=== PATIENT | male | born 1970 | race Caucasian/White ===

== ENCOUNTER 2020-06-19 07:23 | Outpatient (REF) | payer BC, SELFPAY ==
[2020-06-19 07:59] LABS: MANUAL DIFF FLAG NO
[2020-06-19 08:01] LABS: Glucose Urine UA NEG (NEG); Leukocyte Esterase Urine NEG (NEG); Nitrite Urine NEG (NEG); Urine Blood TRACE (NEG); Urine Ketones NEG (NEG); Urine Protein NEG (NEG-TRACE)
[2020-06-19 08:02] LABS: Basophils Absolute Auto 0.1 X10*3/uL (0.0-0.2); Basophils Percent Auto 0.9 % (0-2); Eosinophils Absolute Auto 0.3 X10*3/uL (0.0-0.4); Eosinophils Percent Auto 3.3 % (0-4); Hemoglobin 15.7 g/dl (14.0-18.0); Imm Gran Abs Auto 0.05 X10*3/uL (0.00-0.03); Imm Gran Pct Auto 0.6 % (0.0-0.4); Lymphocytes Absolute Auto 2.2 X10*3/uL (1.2-4.9); Lymphocytes Percent Auto 27.4 % (20-40); Mean Corpuscular HGB Conc 34.9 g/dl (31.0-36.0); Mean Corpuscular Hemoglobin 30.4 pg (27.0-33.0); Mean Platelet Volume 9.3 fL (9.4-12.4); Monocytes Absolute Auto 0.6 X10*3/uL (0.1-1.2); Monocytes Percent Auto 7.4 % (2-11); Neutrophils Absolute Auto 4.9 X10*3/uL (2.0-8.3); Neutrophils Percent Auto 60.4 % (45-73); Platelet Count 362 X10*3/uL (160-400); Red Blood Count 5.17 X10*6/uL (4.60-5.80); Red Cell Distribution Width 12.3 % (11.0-16.0); White Blood Count 8.1 X10*3/uL (4.8-10.8)
[2020-06-19 08:03] LABS: Appearance Urine CLEAR; Color Urine YELLOW
[2020-06-19 08:19] LABS: RBC Urine 0-2 /HPF (0); WBC Urine 0 /HPF (0-4)
[2020-06-19 08:34] LABS: Alanine Aminotransferase 58 U/L (0-40); Albumin Level 4.5 g/dL (3.5-5.0); Alkaline Phosphatase 93 U/L (39-117); Anion Gap 13 (12-20); Aspartate Amino Transferase 38 U/L (5-37); Bilirubin Total 0.6 mg/dL (0.0-1.0); Blood Urea Nitrogen 19 mg/dL (9-16); Calcium 9.7 mg/dL (8.4-10.2); Carbon Dioxide 27 mmol/L (22-29); Chloride 104 mmol/L (96-108); Cholesterol 279 mg/dL; Estimated Glomerular Filt Rate > 60; Glucose Fasting 98 mg/dL (60-99); HDL Cholesterol 43 mg/dL; Potassium 4.1 mmol/L (3.3-5.1); Sodium 140 mmol/L (135-145); Total Protein 7.3 g/dL (6.5-8.0); Triglycerides 593 mg/dL
[2020-06-19 08:57] LABS: TSH reflex Free T4 0.81 uIU/mL (0.32-4.0)
== END 2020-06-19 07:24 | disposition home or self-care (01) ==
LOC: HO.LAB 07:23
PROVIDERS: PCP Internal Medicine; Visit Provider Internal Medicine
DX: I10 Essential (primary) hypertension (principal); E66.9 Obesity, unspecified; E78.00 Pure hypercholesterolemia, unspecified
CPT/HCPCS: 36415; 80053; 80061; 81001; 81003; 84443; 85025

== ENCOUNTER 2020-12-08 08:02 | Outpatient (REF) | payer BC, SELFPAY ==
[2020-12-08 09:34] LABS: Alanine Aminotransferase 40 U/L (0-40); Albumin Level 4.4 g/dL (3.5-5.0); Alkaline Phosphatase 87 U/L (39-117); Anion Gap 13 (12-20); Aspartate Amino Transferase 27 U/L (5-37); Bilirubin Total 0.6 mg/dL (0.0-1.0); Blood Urea Nitrogen 15 mg/dL (9-16); Calcium 9.5 mg/dL (8.4-10.2); Carbon Dioxide 24 mmol/L (22-29); Chloride 106 mmol/L (96-108); Estimated Glomerular Filt Rate > 60; Glucose Fasting 95 mg/dL (60-99); Potassium 4.1 mmol/L (3.3-5.1); Sodium 139 mmol/L (135-145); Total Protein 7.2 g/dL (6.5-8.0)
[2020-12-08 09:46] LABS: Cholesterol 352 mg/dL; HDL Cholesterol 38 mg/dL; Triglycerides 1287 mg/dL
[2020-12-08 09:52] LABS: Prostate Specific Antigen 0.46 ng/mL (<0.05-4.0)
[2020-12-08 10:03] LABS: Glucose Urine UA NEG (NEG); Leukocyte Esterase Urine NEG (NEG); Nitrite Urine NEG (NEG); Specific Gravity - Urine 1.025 (1.005-1.025); Urine Blood NEG (NEG); Urine Ketones NEG (NEG); Urine Protein TRACE MG/DL (NEG-TRACE)
[2020-12-08 10:05] LABS: Appearance Urine CLOUDY; Color Urine YELLOW
[2020-12-12 16:27] LABS: Testosterone, Total 242 ng/dL (250-1100)
== END 2020-12-08 08:03 | disposition home or self-care (01) ==
LOC: HO.LAB 08:02
PROVIDERS: PCP Internal Medicine; Visit Provider Internal Medicine
DX: E78.2 Mixed hyperlipidemia (principal); I10 Essential (primary) hypertension; R79.89 Other specified abnormal findings of blood chemistry; N52.9 Male erectile dysfunction, unspecified; Z12.5 Encounter for screening for malignant neoplasm of prostate
CPT/HCPCS: 36415; 80053; 80061; 81003; 84153; 84403

== ENCOUNTER 2021-03-12 06:56 | Outpatient (REF) | payer BC, SELFPAY ==
[2021-03-12 07:56] LABS: Alanine Aminotransferase 32 U/L (0-40); Albumin Level 4.5 g/dL (3.5-5.0); Alkaline Phosphatase 72 U/L (39-117); Anion Gap 14 (12-20); Aspartate Amino Transferase 29 U/L (5-37); Bilirubin Total 0.6 mg/dL (0.0-1.0); Blood Urea Nitrogen 18 mg/dL (9-16); Carbon Dioxide 26 mmol/L (22-29); Chloride 108 mmol/L (96-108); Cholesterol 250 mg/dL; Estimated Glomerular Filt Rate > 60; Glucose Fasting 106 mg/dL (60-99); HDL Cholesterol 51 mg/dL; Potassium 4.2 mmol/L (3.3-5.1); Sodium 144 mmol/L (135-145); Total Protein 7.1 g/dL (6.5-8.0); Triglycerides 494 mg/dL
== END 2021-03-12 06:57 | disposition home or self-care (01) ==
LOC: HO.LAB 06:56
PROVIDERS: PCP Internal Medicine; Visit Provider Internal Medicine
DX: E78.00 Pure hypercholesterolemia, unspecified (principal)
CPT/HCPCS: 36415; 80053; 80061

== ENCOUNTER 2021-05-27 06:46 | Outpatient (REF) | payer BC, SELFPAY ==
[2021-05-27 07:00] LABS: MANUAL DIFF FLAG NO
[2021-05-27 07:28] LABS: Basophils Absolute Auto 0.1 X10*3/uL (0.0-0.2); Basophils Percent Auto 0.8 % (0-2); Eosinophils Absolute Auto 0.4 X10*3/uL (0.0-0.4); Eosinophils Percent Auto 5.2 % (0-4); Hematocrit 42.5 % (42.0-52.0); Hemoglobin 14.6 g/dl (14.0-18.0); Imm Gran Abs Auto 0.02 X10*3/uL (0.00-0.03); Imm Gran Pct Auto 0.3 % (0.0-0.4); Lymphocytes Absolute Auto 2.6 X10*3/uL (1.2-4.9); Lymphocytes Percent Auto 35.5 % (20-40); Mean Corpuscular HGB Conc 34.4 g/dl (31.0-36.0); Mean Corpuscular Hemoglobin 29.4 pg (27.0-33.0); Mean Corpuscular Volume 85.5 fL (80.0-98.0); Mean Platelet Volume 9.4 fL (9.4-12.4); Monocytes Absolute Auto 0.6 X10*3/uL (0.1-1.2); Monocytes Percent Auto 7.7 % (2-11); Neutrophils Absolute Auto 3.7 x10*3/uL (2.0-8.3); Neutrophils Percent Auto 50.5 % (45-73); Platelet Count 305 X10*3/uL (160-400); Red Blood Count 4.97 X10*6/uL (4.60-5.80); Red Cell Distribution Width 12.4 % (11.0-16.0); White Blood Count 7.2 X10*3/uL (4.8-10.8)
[2021-05-27 08:10] LABS: Alanine Aminotransferase 49 U/L (0-40); Albumin Level 4.1 g/dL (3.5-5.0); Alkaline Phosphatase 117 U/L (39-117); Anion Gap 12 (12-20); Aspartate Amino Transferase 21 U/L (5-37); Bilirubin Total 0.7 mg/dL (0.0-1.0); Blood Urea Nitrogen 13 mg/dL (9-16); Calcium 9.3 mg/dL (8.4-10.2); Carbon Dioxide 26 mmol/L (22-29); Chloride 102 mmol/L (96-108); Cholesterol 363 mg/dL; Estimated Glomerular Filt Rate > 60; Glucose Fasting 103 mg/dL (60-99); HDL Cholesterol 36 mg/dL; Sodium 136 mmol/L (135-145); Total Protein 6.9 g/dL (6.5-8.0); Triglycerides 1574 mg/dL
[2021-05-27 08:18] LABS: Prostate Specific Antigen Scr 0.46 ng/mL (<0.05-4.0); TSH reflex Free T4 1.15 uIU/mL (0.32-4.0); Vitamin D 25-OH Total 18.2 ng/mL (>30)
[2021-05-27 08:39] LABS: Appearance Urine CLEAR; Color Urine YELLOW; Glucose Urine UA NEG (NEG); Leukocyte Esterase Urine NEG (NEG); Nitrite Urine NEG (NEG); Specific Gravity - Urine 1.025 (1.005-1.025); UACC Culture Trigger NO; Urine Blood TRACE (NEG); Urine Ketones NEG (NEG); Urine Protein NEG (NEG-TRACE)
[2021-05-27 09:09] LABS: WBC Urine 0 /HPF (0-4)
== END 2021-05-27 06:47 | disposition home or self-care (01) ==
LOC: HO.LAB 06:46
PROVIDERS: PCP Internal Medicine; Visit Provider Internal Medicine
DX: Z00.00 Encounter for general adult medical examination without abnormal findings (principal); E78.00 Pure hypercholesterolemia, unspecified; E55.9 Vitamin D deficiency, unspecified; I10 Essential (primary) hypertension
CPT/HCPCS: 36415; 80053; 80061; 81001; 81003; 82306; 84153; 84443; 85025

== ENCOUNTER 2021-08-28 07:55 | Outpatient (REF) | payer BC, SELFPAY ==
[2021-08-28 08:57] LABS: Alanine Aminotransferase 42 U/L (0-40); Albumin Level 4.5 g/dL (3.5-5.0); Alkaline Phosphatase 86 U/L (39-117); Anion Gap 12 (12-20); Aspartate Amino Transferase 33 U/L (5-37); Bilirubin Total 0.7 mg/dL (0.0-1.0); Blood Urea Nitrogen 24 mg/dL (9-16); Calcium 10.2 mg/dL (8.4-10.2); Carbon Dioxide 25 mmol/L (22-29); Chloride 104 mmol/L (96-108); Cholesterol 280 mg/dL; Estimated Glomerular Filt Rate > 60; Glucose Fasting 104 mg/dL (60-99); HDL Cholesterol 44 mg/dL; Potassium 4.8 mmol/L (3.3-5.1); Sodium 136 mmol/L (135-145); Total Protein 7.2 g/dL (6.5-8.0); Triglycerides 718 mg/dL
[2021-08-28 09:19] LABS: TSH reflex Free T4 0.95 uIU/mL (0.32-4.0); Vitamin D 25-OH Total 27.9 ng/mL (>30)
[2021-08-28 10:16] LABS: Appearance Urine HAZY; Color Urine YELLOW; Glucose Urine UA NEG (NEG); Leukocyte Esterase Urine NEG (NEG); Nitrite Urine NEG (NEG); Specific Gravity - Urine 1.025 (1.005-1.025); Urine Blood NEG (NEG); Urine Ketones NEG (NEG); Urine Protein NEG (NEG-TRACE)
== END 2021-08-28 07:56 | disposition home or self-care (01) ==
LOC: HO.LAB 07:55
PROVIDERS: PCP Internal Medicine; Visit Provider Internal Medicine
DX: Z00.00 Encounter for general adult medical examination without abnormal findings (principal); I10 Essential (primary) hypertension; E78.00 Pure hypercholesterolemia, unspecified; E55.9 Vitamin D deficiency, unspecified
CPT/HCPCS: 36415; 80053; 80061; 81003; 82306; 84443

== ENCOUNTER 2022-03-18 08:03 | Outpatient (REF) | payer BC, SELFPAY ==
[2022-03-18 09:42] LABS: Estimated Average Glucose 111 mg/dL; Hemoglobin A1C 152.3719 umol/L; Hemoglobin A1c % 5.5 %
[2022-03-18 10:30] LABS: Anion Gap 13 (12-20); Glucose Fasting 83 mg/dL (60-99); TSH reflex Free T4 0.96 uIU/mL (0.32-4.0)
[2022-03-18 10:38] LABS: Alanine Aminotransferase 44 U/L (0-40); Albumin Level 4.3 g/dL (3.5-5.0); Alkaline Phosphatase 78 U/L (39-117); Aspartate Amino Transferase 29 U/L (5-37); Bilirubin Total 0.7 mg/dL (0.0-1.0); Blood Urea Nitrogen 19 mg/dL (9-16); Calcium 9.6 mg/dL (8.4-10.2); Carbon Dioxide 25 mmol/L (22-29); Chloride 106 mmol/L (96-108); Cholesterol 221 mg/dL; Estimated Glomerular Filt Rate > 60; HDL Cholesterol 42 mg/dL; Potassium 4.2 mmol/L (3.3-5.1); Sodium 140 mmol/L (135-145); Total Protein 6.8 g/dL (6.5-8.0); Triglycerides 555 mg/dL
== END 2022-03-18 08:04 | disposition home or self-care (01) ==
LOC: HO.LAB 08:03
PROVIDERS: PCP Internal Medicine; Visit Provider Internal Medicine
DX: E78.00 Pure hypercholesterolemia, unspecified (principal); R73.01 Impaired fasting glucose
CPT/HCPCS: 36415; 80053; 80061; 83036; 84443

== ENCOUNTER 2022-09-04 07:44 | Outpatient (REF) | payer BC, SELFPAY ==
[2022-09-04 09:01] LABS: Alanine Aminotransferase 32 U/L (0-40); Albumin Level 4.5 g/dL (3.5-5.0); Alkaline Phosphatase 77 U/L (39-117); Anion Gap 13 (12-20); Aspartate Amino Transferase 26 U/L (5-37); Bilirubin Total 0.8 mg/dL (0.0-1.0); Blood Urea Nitrogen 18 mg/dL (9-16); Calcium 9.7 mg/dL (8.4-10.2); Carbon Dioxide 24 mmol/L (22-29); Chloride 107 mmol/L (96-108); Cholesterol 264 mg/dL; Estimated Glomerular Filt Rate > 60; Glucose Fasting 94 mg/dL (60-99); HDL Cholesterol 43 mg/dL; Potassium 4.4 mmol/L (3.3-5.1); Sodium 140 mmol/L (135-145); Total Protein 7.2 g/dL (6.5-8.0); Triglycerides 525 mg/dL
[2022-09-04 09:20] LABS: Vitamin D 25-OH Total 29.5 ng/mL (>30)
== END 2022-09-04 07:45 | disposition home or self-care (01) ==
LOC: HO.LAB 07:44
PROVIDERS: PCP Internal Medicine; Visit Provider Internal Medicine
DX: E78.00 Pure hypercholesterolemia, unspecified (principal); E55.9 Vitamin D deficiency, unspecified
CPT/HCPCS: 36415; 80053; 80061; 82306

== ENCOUNTER 2022-10-31 09:21 | Outpatient (AMB) | payer BC, SELFPAY ==
--- NOTE | 2022-10-31 09:22 | MHC.OFFVIS ---
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 Dashboard Developer Required: No Accompanied by: Self / Same As Patient Allergies bee venom protein (honey bee) Allergy (Severe, Verified 10/31/22 09:28) Anaphylaxis Medication List - Last Reconciled 10/31/22 by Baldemar Magaña MD amlodipine 10 mg PO DAILY 90 days cholecalciferol (vitamin D3) 25 mcg PO DAILY epinephrine (EpiPen 2-Enoch) 0.3 mg (0.3 mL) IM Q4H PRN ezetimibe 10 mg PO DAILY 90 days fenofibrate 160 mg PO DAILY 90 days losartan 100 mg PO DAILY 90 days omega-3 fatty acids 1,000 mg PO DAILY HPI HPI Comments History of Present Illness Details Titus is here for consultation regarding hypertension and chest pain. Patient states that he has had hypertension for almost 20 years now. He is on a combination of amlodipine and losartan. Blood pressures are quite high. Several blood pressures in the last couple of years are high and nothing in fact in the normal range. He states he was also taking hydralazine but got dizzy and started. He gets a vague sensation of discomfort in the left chest off and on. He feels as though there is some bowel noise in the left chest, very vague description. Otherwise, he is physically active he does not get any exertional angina. Also seems to have a history of high triglycerides. Unknown LDL. [facility] Medical History Benign essential hypertension Elevated LFTs Erectile dysfunction Impaired fasting glucose Mixed hyperlipidemia Obesity (BMI 30-39.9) Pure hypercholesterolemia Vitamin D deficiency Surgical History Hx of umbilical hernia repair (~02/2015) Family History (Updated 10/31/22 @ 09:29 by Nivia Cooper) Father Prostate cancer Mother Heart problem Social History Housing: House Alcohol intake: current Alcohol intake frequency: holidays/special occasions only Alcohol type: beer Patient Tobacco Use Status: Never used Tobacco e-Cigarette/Vaping Use: Never Used Second Hand Smoke Exposure: No service: No Current occupational status: employed Cognitive needs: No Hearing needs: No Vision needs: No Review of Systems Const Denies chills, Denies daytime sleepiness, Denies fatigue, Denies fever(s), Denies frequent falls, Denies night sweats, Denies snoring, Denies weakness, Denies weight gain and Denies weight loss Eyes Denies loss of vision ENT Denies dizziness and Denies hearing loss Card Denies chest pain, Denies chest pain with activity, Denies syncope, Denies rapid heart rate, Denies edema, Denies claudication, Denies leg edema, Denies lightheadedness, Denies palpitations, Denies dyspnea, Denies dyspnea on exertion and Denies orthopnea Resp Denies cough, Denies excessive phlegm production, Denies dyspnea, Denies dyspnea on exertion, Denies snoring and Denies wheezing GI Denies abdominal pain, Denies hematochezia, Denies change in bowel habits, Denies change in stool character, Denies heartburn, Denies nausea and Denies vomiting Denies hematuria, Denies dysuria and Denies urinary frequency Musc Denies arthralgias, Denies muscle weakness, Denies numbness and Denies tingling Skin/Breast Denies nail changes and Denies rash Neuro Denies Abnormal speech present, Denies dizziness, Denies syncope, Denies frequent falls, Denies loss of vision, Denies memory loss, Denies numbness, Denies tingling and Denies weakness Psych Denies depression and Denies memory loss Endo Denies fatigue and Denies palpitations Aller/Immun Denies wheezing Physical Exam Vital Signs: Last Vital Signs Pulse 74 10/31/22 09:24 BP 152/86 H 10/31/22 09:24 BMI result Body Mass Index 31.9 Const General: comfortable and no acute distress Orientation/consciousness: patient oriented x3 HEENT Other: Unremarkable Head: Yes normal to inspection Neck Neck: Yes normal visual inspection Chest Chest palpation & inspection: normal inspection of the chest Resp Auscultation: clear to auscultation bilaterally Cardio Palpation: normal PMI Heart sounds: S1 normal heart sound present, S2 normal heart sound present, no gallops, no murmurs and no rubs GI Palpation (GI): Soft to palpation Back/Spine/Pelvis Other: unremarkable Skin General skin exam: no rashes or lesions noted Neuro General: patient oriented x3 Speech: No Abnormal speech present Extrem General: Yes normal to inspection Psych Mental Status: mental status grossly normal Office Procedures EKG Details: EKG with sinus rhythm at 74/Min; no significant ST-T changes and otherwise unremarkable. [place]. [address]-[id number], Complete Assessment & Plan Assessment & Plan (1) Chest pain: Code(s): R07.9 - Chest pain, unspecified Plan: Atypical symptoms but due to uncontrolled hypertension as well as high triglycerides, will need to check for CAD. We can do coronary CTA. He has a history of severe allergic reaction to bee sting in the past, and has p.r.n. EpiPen. However, never used it. Will check with CT department if any prep is necessary. (2) Benign essential hypertension: Code(s): I10 - Essential (primary) hypertension Plan: Currently on a combination of amlodipine, losartan. Apparently tried hydralazine but got dizzy. Other option would be to add spironolactone. Beta-blockers may be use but he seems to be on EpiPen p.r.n.. Hence that will not be effective if there is a need to use EpiPen ever. Beyond this not much of a choice. May need some renal Dopplers to. Will get an echocardiogram to assess for any LVH/diastolic dysfunction. Plan Follow-up after testing. Orders: Orders CA echo transthoracic complete Today I25.10 - Atherosclerotic heart disease of [place] coronary artery without angina pectoris, R07.9 - Chest pain, unspecified CT Cardiac Coronary Angio Today R07.9 - Chest pain, unspecified Medications: Discontinued hydralazine Discontinued Reason: Patient no longer taking 25 mg PO TID 90 days 270 tabs 1RF I10 - Essential (primary) hypertension Coding Level of Care Code New Pt Level 4 (71914) Diagnoses Chest pain R07.9 Benign essential hypertension I10 CPT Codes EKG - CPT: 52901-[id number], Complete ([id number])
[2022-10-31 09:24] VITALS: BP 152/86; PULSE 74; BMI 31.9
== END 2022-10-31 09:49 | disposition home or self-care (01) ==
PROVIDERS: PCP Internal Medicine; Visit Provider Internal Medicine
DX: R07.9 Chest pain, unspecified (principal); I10 Essential (primary) hypertension
CPT/HCPCS: 93010; 99204

== ENCOUNTER → 2022-10-31 09:21 | Outpatient (BNVA) | payer BC, SELFPAY | PROVIDERS: PCP Internal Medicine; Visit Provider Internal Medicine | DX: R07.9 Chest pain, unspecified (principal); I10 Essential (primary) hypertension; E78.2 Mixed hyperlipidemia; Z79.899 Other long term (current) drug therapy | CPT/HCPCS: 93005 ==

== ENCOUNTER → 2022-12-10 07:51 | Outpatient (REF) | payer BC, SELFPAY ==
--- NOTE | 2022-12-10 07:56 | CA_ITS ---
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 Study Quality: Adequate ECG Rhythm: Sinus Conclusions: - 1. Normal LV systolic function with LVEF of 55-60% with mild LVH 2. Mildly dilated left atrium 3. Normal cardiac valvular Doppler 4. No gross pericardial effusion Findings Left Ventricle Normal left ventricular size and systolic function. There is mildly increased left ventricular wall thickness. The visually estimated ejection fraction is between 55-60%. Spectral Doppler is indicative of an impaired relaxation filling pattern. E/E prime ratio is between 8 and 15 consistent with indeterminate filling pressures. Right Ventricle Normal right ventricular cavity size and systolic function. Atria The left atrium is mildly dilated. There is lipomatous hypertrophy of the interatrial septum. There is no evidence of interatrial shunt. The right atrium is normal in size. Aortic Valve The aortic valve structure and function is likely normal. There is no aortic valve stenosis. There is no aortic valve regurgitation. Mitral Valve Normal mitral valve structure and function. There is trace mitral valve regurgitation. There is no mitral valve stenosis. Pulmonic Valve The pulmonic valve is likely normal. Tricuspid Valve Likely normal tricuspid valve structure and function. There is trace tricuspid valve regurgitation. The right ventricular systolic pressure is normal. The right ventricular systolic pressure is 9 mmHg. Great Vessels All visible segments of the aorta are normal in size. The pulmonary artery was not well visualized. Venous The inferior vena cava is normal in size and collapses greater than 50% with inspiration. Pericardium/Pleural There is no evidence of pericardial effusion. Prior Study Comparison No prior study available for comparison. Measurements 2D Linear Measurements IVSd: 1.23 0.6-0.9/0.6-1.0 cm LVIDd: 4.28 3.9-5.3/4.2-5.9 cm LVIDd Index: 2.14 2.4-3.2/2.2-3.1 cm/m2 LVIDs: 2.74 2.0-3.6 cm LVPWd: 1.22 0.7-1.1 cm LA Diam: 4.20 2.7-3.8/3.0-4.0 cm LAIDs Index: 2.10 1.5-2.3 cm/m2 LV Mass: 235.48 67-162/88-224 g LV Mass Index: 117.74 43-95/49-115 g/m2 LVOT Diam: 2.10 3.0+(-)1.3 cm 2D Systolic Function EF 4C: 50.10 >55% EF 2C: 62.10 >55% EF BiP: 57.80 >55% Mitral Valve MV Pk E: 0.69 MV PK A: 0.82 MV Decel Time: 244.00 E/A: 0.80 E'Lateral: 11.10 E'Medial: 8.05 E/E' Med: 8.60 E/E' Lat: 6.20 PHT: 72.00 MVA PHT: 3.06 Decel Brantley: 2.82 Aortic Valve AoV Pk Gato: 1.56 AoV Mn Gato: 0.94 AoV VTI: 0.36 AoV Pk Grad: 10.00 Aov Mn Grad: 5.00 ANDREW Cont.VTI: 2.34 LVOT LVOT Pk Gato: 0.98 LVOT Mn Gato: 0.64 LVOT VTI: 0.24 LVOT Pk Grad: 4.00 LVOT Mn Grad: 2.00 LVOT Diam: 2.10 LVOT Area: 3.46 Diastolic Function MV Pk E: 0.69 MV Pk A: 0.82 E/A: 0.80 E'Medial: 8.05 E/E' Med: 8.60 E' Laterial: 11.10 E/E' Lat: 6.20 Right Ventricle TAPSE (mm): 28.70 TVS' Gato: 12.50 Tricuspid Valve TR Pk Gato: 1.20 TR Pk Grad: 6.00 RA Press: 3.00 RVSP: 9.00 Great Vessels Aorta Sinus of Valsalva: 3.10 2.0-3.5 cm Ao Asc: 3.40 2.1-3.4 cm Pulmonary Valve PV Pk Gato: 1.10 Peak PV Grad: 5.00 Updated in Other Vendor System with Status of Final Ran Null MD electronically signed on 12/12/2022 11:42:39 AM with status of Final
== END ==
LOC: HO.CARD 07:51
PROVIDERS: PCP Internal Medicine; Visit Provider Internal Medicine
DX: R07.9 Chest pain, unspecified (principal); I25.10 Atherosclerotic heart disease of native coronary artery without angina pectoris
CPT/HCPCS: 93306

== ENCOUNTER → 2022-12-10 07:56 | Outpatient (BNV) | payer BC, SELFPAY | PROVIDERS: PCP Internal Medicine; Visit Provider Internal Medicine Cardiovascular Disease | DX: I25.10 Atherosclerotic heart disease of native coronary artery without angina pectoris (principal) | CPT/HCPCS: 93306 ==

== ENCOUNTER 2023-01-13 11:58 | Outpatient (AMB) | payer BC, SELFPAY ==
--- NOTE | 2023-01-13 12:31 | MHC.OFFVIS ---
Intake Vital Signs 01/13/23 12:33 Height 5 ft 6 in Weight 199 lb 11.821 oz BMI 32.2 BP 152/90 H Blood Pressure Location Lt brachial Position Standing Intake Visit Reasons: follow up after testing Intake Note: follow up Regulatory Compliance Specialist Required: No Accompanied by: Self / Same As Patient Allergies bee venom protein (honey bee) Allergy (Severe, Verified 01/13/23 12:34) Anaphylaxis Medication List - Last Reconciled 01/13/23 by Baldemar Magaña MD amlodipine 10 mg PO DAILY 90 days cholecalciferol (vitamin D3) 25 mcg PO DAILY epinephrine (EpiPen 2-Enoch) 0.3 mg (0.3 mL) IM Q4H PRN ezetimibe 10 mg PO DAILY 90 days fenofibrate 160 mg PO DAILY 90 days losartan 100 mg PO DAILY 90 days omega-3 fatty acids 1,000 mg PO DAILY HPI HPI Comments History of Present Illness Details Titus returns for follow-up. Recently seen in consultation regarding hypertension and chest pain. He has had hypertension for almost 2 decades. On amlodipine and losartan. Blood pressure is still high. He tried hydralazine but got very dizzy. Has had some atypical chest pain on the left side off and on. However, fairly active physically and no limitations from that. No exertion chest pains. Since last seen, underwent echocardiogram and coronary CTA. [facility] Medical History Benign essential hypertension Elevated LFTs Erectile dysfunction Impaired fasting glucose Mixed hyperlipidemia Obesity (BMI 30-39.9) Pure hypercholesterolemia Vitamin D deficiency Surgical History Hx of umbilical hernia repair (~02/2015) Family History Father Prostate cancer Mother Heart problem Social History Housing: House Alcohol intake: current Alcohol intake frequency: holidays/special occasions only Alcohol type: beer Patient Tobacco Use Status: Never used Tobacco e-Cigarette/Vaping Use: Never Used Second Hand Smoke Exposure: No service: No Current occupational status: employed Cognitive needs: No Hearing needs: No Vision needs: No Review of Systems Const Denies weakness ENT Denies dizziness Card Denies chest pain, Denies chest pain with activity, Denies syncope, Denies rapid heart rate, Denies pedal edema, Denies edema, Denies leg edema, Denies lightheadedness, Denies palpitations, Denies dyspnea, Denies dyspnea on exertion and Denies orthopnea Resp Denies cough, Denies dyspnea and Denies dyspnea on exertion GI Denies hematochezia and Denies change in stool character Musc Denies abnormal gait, Denies muscle cramps, Denies muscle weakness, Denies numbness, Denies radiating pain into limb and Denies tingling Neuro Denies abnormal gait, Denies dizziness, Denies syncope, Denies numbness, Denies tingling and Denies weakness Endo Denies palpitations Physical Exam Vital Signs: Last Vital Signs BP 152/90 H 01/13/23 12:33 BMI result Body Mass Index 32.2 Const General: comfortable and no acute distress Orientation/consciousness: patient oriented x3 HEENT Other: Unremarkable Head: Yes normal to inspection Neck Neck: Yes normal visual inspection Chest Chest palpation & inspection: normal inspection of the chest Resp Auscultation: clear to auscultation bilaterally Cardio Palpation: normal PMI Heart sounds: S1 normal heart sound present, S2 normal heart sound present, no gallops, no murmurs and no rubs GI Palpation (GI): Soft to palpation Back/Spine/Pelvis Other: unremarkable Skin General skin exam: no rashes or lesions noted Neuro General: patient oriented x3 Extrem General: Yes normal to inspection Psych Mental Status: mental status grossly normal Assessment & Plan Assessment & Plan (1) Chest pain: Code(s): R07.9 - Chest pain, unspecified Plan: Coronary CT is unremarkable. Echocardiogram with LVEF of 55-60%. Mild LVH/diastolic dysfunction but otherwise unremarkable. Hence the pain is probably noncardiac. No further workup at this time. (2) Benign essential hypertension: Code(s): I10 - Essential (primary) hypertension Plan: Currently on amlodipine/losartan. Hydralazine make some dizzy. With regard to beta-blockers, will not be able to use as he needs EpiPen for serious allergic reactions. Hence start spironolactone/HCTZ combination. BMP few weeks after that. Check renal artery Doppler. Check home sleep study. Plan Follow-up after testing. Orders: Orders Basic Metabolic Panel 4 Weeks I10 - Essential (primary) hypertension US renal doppler Today I70.1 - Atherosclerosis of renal artery RT home sleep study Today G47.33 - Obstructive sleep apnea (adult) (pediatric) Medications: New spironolacton-hydrochlorothiaz 25-25 mg 1 tab PO DAILY 90 tabs 3RF Coding Level of Care Code Est Pt Level 4 (86539) Diagnoses Chest pain R07.9 Benign essential hypertension I10
[2023-01-13 12:33] VITALS: BP 152/90; BMI 32.2
== END 2023-01-13 12:46 | disposition home or self-care (01) ==
PROVIDERS: PCP Internal Medicine; Visit Provider Internal Medicine
DX: R07.9 Chest pain, unspecified (principal); I10 Essential (primary) hypertension
CPT/HCPCS: 99214

== ENCOUNTER → 2023-01-13 11:58 | Outpatient (BNVA) | payer BC, SELFPAY | PROVIDERS: PCP Internal Medicine; Visit Provider Internal Medicine ==

== ENCOUNTER 2023-02-03 06:48 | Outpatient (REF) | payer BC, SELFPAY ==
[2023-02-03 08:03] LABS: Alanine Aminotransferase 45 U/L (0-40); Albumin Level 4.5 g/dL (3.5-5.0); Alkaline Phosphatase 55 U/L (39-117); Anion Gap 14 (12-20); Aspartate Amino Transferase 51 U/L (5-37); Bilirubin Total 0.8 mg/dL (0.0-1.0); Blood Urea Nitrogen 21 mg/dL (9-16); Calcium 9.5 mg/dL (8.4-10.2); Carbon Dioxide 20 mmol/L (22-29); Chloride 106 mmol/L (96-108); Cholesterol 188 mg/dL (<200); Estimated Glomerular Filt Rate > 60; Glucose Fasting 103 mg/dL (60-99); Glucose Random 102 mg/dL (60-115); HDL Cholesterol 47 mg/dL (>40); LDL Cholesterol Calculated 107 mg/dL (<100); Potassium 5.4 mmol/L (3.3-5.1); Sodium 135 mmol/L (135-145); Total Protein 7.8 g/dL (6.5-8.0); Triglycerides 174 mg/dL (<150)
[2023-02-03 08:15] LABS: Vitamin D 25-OH Total 31.9 ng/mL (>30)
== END 2023-02-03 06:49 | disposition home or self-care (01) ==
LOC: HO.LAB 06:48
PROVIDERS: PCP Internal Medicine; Visit Provider Nurse Practitioner Family
DX: E55.9 Vitamin D deficiency, unspecified (principal); E78.2 Mixed hyperlipidemia; I10 Essential (primary) hypertension
CPT/HCPCS: 36415; 80048; 80053; 80061; 82306

== ENCOUNTER 2023-02-09 09:11 | Outpatient (AMB) | payer BC, SELFPAY ==
[2023-02-09 09:15] VITALS: BP 124/90; PULSE 67; O2SAT 97; BMI 32.0
--- NOTE | 2023-02-09 09:15 | MHC.PC.OV ---
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 Needle Tip Required: No Accompanied by: Self / Same As Patient Allergies bee venom protein (honey bee) Allergy (Severe, Verified 02/09/23 09:34) Anaphylaxis Medication List - Last Reconciled 02/09/23 by Dwayne Jose MD amlodipine 10 mg PO DAILY 90 days cholecalciferol (vitamin D3) 25 mcg PO DAILY epinephrine (EpiPen 2-Enoch) 0.3 mg (0.3 mL) IM Q4H PRN ezetimibe 10 mg PO DAILY 90 days fenofibrate 160 mg PO DAILY 90 days hydrochlorothiazide 25 mg PO DAILY losartan 100 mg PO DAILY 90 days omega-3 fatty acids 1,000 mg PO DAILY Tobacco use date assessed: 02/09/23 Dental Screening Dental Screen Date: 02/09/23 Did you have a dental visit in the last 12 months?: No Did you have a dental problem in the last 6 months where you did not have access to dental care?: No Was dental information given to patient?: No HPI HTN, HLD HPI Details Patient comes in today for his follow up visit States that he feels okay He denies any headaches or dizziness Denies any chest pains, no SOB He had echocardiogram and coronary CT done a couple of months ago with cardiology - both came back okay, with only mild LVH and mildly dilated LA on echo No nausea/vomiting, no abdominal pain No change in bowel habits noted He's had some changes made to his BP meds over the past few months and had to have his Aldactazide discontinued recently and changed back to HCTZ due to hyperkalemia on his recent labs Had his follow up labs done last week - to discuss his results FOR[facility]LY [facility], [facility] Medical History (Updated 02/09/23 @ 10:33 by Dwayne Jose MD) Impaired fasting glucose Vitamin D deficiency Elevated LFTs Erectile dysfunction Mixed hyperlipidemia Obesity (BMI 30-39.9) Benign essential hypertension Surgical History Hx of umbilical hernia repair (~02/2015) Family History Father Prostate cancer Mother Heart problem Social History Housing: House Alcohol intake: current Alcohol intake frequency: holidays/special occasions only Alcohol type: beer Patient Tobacco Use Status: Never used Tobacco e-Cigarette/Vaping Use: Never Used Second Hand Smoke Exposure: No service: No Current occupational status: employed Cognitive needs: No Hearing needs: No Vision needs: No Questionnaire PHQ-9 Over the last 2 weeks, how often have you been bothered by any of the following problems? 1. Little interest or pleasure in doing things: not at all 2. Feeling down, depressed, or hopeless: not at all 3. Trouble falling or staying asleep, or sleeping too much: not at all 4. Feeling tired or having little energy: not at all 5. Poor appetite or overeating: not at all 6. Feeling bad about yourself - or that you are a failure or have let yourself or your family down: not at all 7. Trouble concentrating on things, such as reading the newspaper or watching television: not at all 8. Moving or speaking so slowly that other people could have noticed. Or the opposite - being so fidgety or restless that you have been moving around a lot more than usual: not at all 9. Thoughts that you would be better off or of hurting yourself in some way: not at all Total score: 0 Depression Screening Interpretation: Negative Depression Screening Done: Yes 35722 - PHQ-9 Billing: Yes Source: Developed by Drs. Lamberto Arias, Hailee Erazo, Kvng Lundberg and colleagues, with an educational marly from [employer]. Thrive Questionnaire Date Thrive assessed: 02/09/23 I am a: Patient What is your living situation today?: I have a steady place to live Within the past 12 months, did the food you bought not last and you didn't have the money to get more?: Never true Within the past 12 months, did you worry whether your food would run out before you got money to buy more?: Never true Do you have trouble paying for medicines?: No Do you have trouble getting transportation to medical appointments?: No Do you have trouble paying your heating and electricity bill?: No Do you have trouble taking care of your child, family member or friend?: No Do you have trouble with day-to-day activities such as bathing, preparing meals, shopping, managing finances, etc.?: No Are you currently unemployed and looking for a job?: No Are you interested in more education?: No Please select the resources that you would like help with: None Currently or been in a relationship where the following occur: no concerns reported AUDIT C Alcohol Use Questionnaire (AUDIT-C) 1. How often do you have a drink containing alcohol?: Monthly or less 2. How many drinks containing alcohol do you have on a typical day when you are drinking?: 1 or 2 3. How often do you have six or more drinks on one occasion?: Never Total Score: 1 Score Reviewed/Action Taken: Yes SHANTELLE-7 AMB Questionnaire SHANTELLE-7 Date SHANTELLE - 7 assessed: 02/09/23 Feeling nervous, anxious, or on edge: 0 = Not at all Not being able to stop or control worryin = Not at all Worrying too much about different things: 0 = Not at all Trouble relaxin = Not at all Being so restless that it is hard to sit still: 0 = Not at all Becoming easily annoyed or irritable: 0 = Not at all Feeling afraid as if something awful might happen: 0 = Not at all Total SHANTELLE-7 score (0-4 normal; 5-9 mild; 10-14 moderate; 15-21 severe): 0 Source: Developed by Drs. Lamberto Arias, Hailee Erazo, Kvng Lundberg and colleagues, with an educational marly from [employer]. Review of Systems Const Denies fatigue and Denies fever(s) ENT Denies dysphagia, Denies otalgia, Denies neck pain, Denies odynophagia and Denies sore throat Card Denies chest pain, Denies rapid heart rate, Denies irregular heart rhythm, Denies palpitations and Denies dyspnea Resp Denies cough, Denies dyspnea and Denies wheezing GI Denies abdominal pain, Denies constipation, Denies dysphagia, Denies heartburn, Denies diarrhea, Denies nausea, Denies odynophagia and Denies vomiting Denies difficulty urinating, Denies dysuria and Denies urinary frequency Musc Denies back pain, Denies arthralgias and Denies neck pain Skin/Breast Denies rash Endo Denies fatigue and Denies palpitations Aller/Immun Denies wheezing Physical exam (Primary Care) Vital Signs: Last Vital Signs Pulse 67 02/09/23 09:15 BP 124/90 H 02/09/23 09:15 Pulse Ox 97 02/09/23 09:15 Oxygen Delivery Method Room Air 02/09/23 09:15 BMI result Body Mass Index 32.0 Tobacco/Smoking Status: Tobacco use Status Tobacco use date assessed 02/09/23 02/09/23 09:23 Patient Tobacco Use Status Never used Tobacco 02/09/23 09:23 e-Cigarette/Vaping Use Never Used 02/09/23 09:23 PHQ-9: PHQ-9 Score PHQ-9: Total score 0 02/09/23 09:23 Depression Screening Interpretation: Negative Thrive Assessment: Date of Thrive Assessment Date Thrive assessed 02/09/23 02/09/23 09:23 Currently or been in a relationship where the following occur: no concerns reported Const General: no acute distress and alert HENMT Ears: TM's normal bilaterally and EAC's normal Throat: Yes posterior oropharynx normal and Yes tonsils normal (no TP congestion) Neck Neck: Yes no lymphadenopathy and Yes supple Resp Auscultation: clear to auscultation bilaterally, no rales and no wheezes Cardio Rate: regular rate Rhythm: regular rhythm Heart sounds: no murmurs GI Palpation (GI): Soft to palpation, nontender and No hepatosplenomegaly present Skin General skin exam: no rashes or lesions noted Extrem General: Yes no clubbing, cyanosis or edema Results Reviewed Results Reviewed: Laboratory Tests 02/03/23 06:53 Sodium 135 Potassium 5.4 H D Creatinine 1.18 Estimated GFR > 60 Fasting Glucose 103 H Calcium 9.5 AST 51 H ALT 45 H Triglycerides 174 H Cholesterol 188 LDL Cholesterol, Calc 107 H HDL Cholesterol 47 25-OH Vitamin D Total 31.9 Assessment and Plan Assessment & Plan (1) Benign essential hypertension: Code(s): I10 - Essential (primary) hypertension Plan: Reinforced low sodium diet - goal is systolic BP of at least 130 mm or less Continue Losartan 100 mg QD, Amlodipine 10 mg QD and HCTZ 25 mg QD He was recently on Aldactazide 25-25 mg QD but this had to be discontinued due to hyperkalemia on his recent labs; was switched back to HCTZ 25 mg QD He also could not tolerate Hydralazine (25 mg TID) in the past due to dizziness and beta blockers are not advisable given his allergies and potential need to use Epipen for anaphylactic reactions He is scheduled for renal doppler and home sleep study for further evaluation next month Follow up with cardiology as scheduled (2) Mixed hyperlipidemia: Code(s): E78.2 - Mixed hyperlipidemia Plan: Results of his labs done last week reviewed and discussed with patient - advised that his cholesterol numbers, especially his serum TG level, have improved significantly from previous Reinforced low cholesterol diet Continue Fenofibrate 160 mg QD and Ezetimibe 10 mg QD Will recheck his labs and fasting lipids in 3 months for follow up (3) Elevated LFTs: Code(s): R79.89 - Other specified abnormal findings of blood chemistry Plan: Was most likely related to his weight and cholesterol level and was improving previously but his LFTs have increased again on his recent labs Discussed that this is likely related to his triglyceride level being lowered significantly in a short amount of time, during which his liver has to work harder to help process his cholesterol Reinforced avoidance of alcohol and Tylenol-containing meds - patient states that he has not drank any alcohol in over a month now Will continue to monitor his LFTs regularly (4) Impaired fasting glucose: Code(s): R73.01 - Impaired fasting glucose Plan: His FBS is still slightly elevated on his recent labs Reinforced low calorie/low carb diet and exercise as tolerated Will recheck his FBS for follow up and check his HgbA1c again in 3 months for further evaluation (5) Hyperkalemia: Code(s): E87.5 - Hyperkalemia Plan: His serum potassium level was elevated on his recent labs Patient was on Aldactazide at the time and this was discontinued and he was switched over to HCTZ alone by cardiology a few days ago Will recheck his labs and serum potassium level in 3 months (6) Vitamin D deficiency: Code(s): E55.9 - Vitamin D deficiency, unspecified Plan: Continue Vitamin D 03072 units once a week (7) Obesity (BMI 30-39.9): Code(s): E66.9 - Obesity, unspecified Plan: Reinforced diet/exercise as tolerated/lose weight Plan Follow up in 3 months Orders: Orders Comprehensive [place]. Panel Fast 3 Months E78.00 - Pure hypercholesterolemia, unspecified, E87.5 - Hyperkalemia, I10 - Essential (primary) hypertension Lipid Panel 3 Months E78.00 - Pure hypercholesterolemia, unspecified Hemoglobin A1c 3 Months R73.01 - Impaired fasting glucose Vitamin D 25-OH Total 3 Months E55.9 - Vitamin D deficiency, unspecified Complete Blood Count Auto Diff 3 Months I10 - Essential (primary) hypertension Coding Level of Care Code Est Pt Level 4 (10181) Diagnoses Benign essential hypertension I10 Mixed hyperlipidemia E78.2 Elevated LFTs R79.89 Impaired fasting glucose R73.01 Hyperkalemia E87.5 Vitamin D deficiency E55.9 Obesity (BMI 30-39.9) E66.9
== END 2023-02-09 09:46 | disposition home or self-care (01) ==
PROVIDERS: PCP Internal Medicine; Visit Provider Internal Medicine
DX: I10 Essential (primary) hypertension (principal); E78.2 Mixed hyperlipidemia; R79.89 Other specified abnormal findings of blood chemistry; R73.01 Impaired fasting glucose; E87.5 Hyperkalemia; E55.9 Vitamin D deficiency, unspecified
CPT/HCPCS: 99214

== ENCOUNTER 2023-02-26 08:31 | Outpatient (REF) | payer BC, SELFPAY ==
--- NOTE | ~2023-02-26 | US_ITS ---
EXAMINATION: Renal ultrasound with Doppler CLINICAL INFORMATION: Atherosclerosis of renal arteries COMPARISON: None. TECHNIQUE: Grayscale and color imaging of the kidneys. Grayscale color and Doppler imaging of the renal arteries including waveform spectral analysis and renal veins FINDINGS: Kidneys are normal in contour and symmetric in size with the right kidney measuring 12.5 x 5.4 x 5.2 cm and the left kidney measuring 12.3 x 6.2 x 6.1 cm. Renal cortical thickness and echogenicity is normal. No renal stone, mass or hydronephrosis. Aortic peak systolic velocity measures 96 cm/s. Right renal artery peak systolic velocities are normal measuring 103, 144 and 1 3 7 cm/s proximally, in the midportion and distally. Right renal artery to aorta ratio is normal measuring 1.4. Resistive indices of the interlobar arteries in the right kidney are normal measuring 0.6-0.7. The right renal vein is patent. Left renal artery peak systolic velocities are normal measuring 131, 156 and 1 2 9 cm/s proximally, in the midportion and distally. Left renal artery to aorta ratio is normal measuring 1.4. Resistive indices of the interlobar renal arteries in the left kidney are normal measuring 0.6-0.7. The left renal vein is patent. US/US renal doppler IMPRESSION: Normal renal ultrasound and renal Doppler exam.
== END 2023-02-26 08:32 | disposition home or self-care (01) ==
LOC: HO.US 08:31
PROVIDERS: PCP Internal Medicine; Visit Provider Internal Medicine
DX: I70.1 Atherosclerosis of renal artery (principal)
CPT/HCPCS: 93975

== ENCOUNTER 2023-04-21 14:39 | Outpatient (AMB) | payer BC, SELFPAY ==
[2023-04-21 14:41] VITALS: BP 140/82; BMI 32.9
--- NOTE | 2023-04-21 14:41 | MHC.OFFVIS ---
Intake Vital Signs 04/21/23 14:41 Height 5 ft 6 in Weight 203 lb 11.314 oz BMI 32.9 BP 140/82 H Blood Pressure Location Lt brachial Position Sitting Intake Visit Reasons: 3 mth f/up testing HS Allergies bee venom protein (honey bee) Allergy (Severe, Verified 04/21/23 14:43) Anaphylaxis Medication List - Last Reconciled 04/21/23 by Yola Collins, [employer] amlodipine 10 mg PO DAILY 90 days cholecalciferol (vitamin D3) 25 mcg PO DAILY epinephrine (EpiPen 2-Enoch) 0.3 mg (0.3 mL) IM Q4H PRN ezetimibe 10 mg PO DAILY 90 days fenofibrate 160 mg PO DAILY 90 days hydrochlorothiazide 25 mg PO DAILY losartan 100 mg PO DAILY 90 days omega-3 fatty acids 1,000 mg PO DAILY HPI 3 mth f/up testing HS HPI Details Titus is a 52-year-old male with past medical history of hypertension, hyperlipidemia, impaired fasting glucose presents for follow-up of blood pressure. On last visit spironolactone and hydrochlorothiazide was added. He then had labs showing elevated potassium and spironolactone was stopped. Renal Doppler test completed, home sleep study ordered however not done yet. Today he reports he has been feeling well since his last visit. He denies any concerning symptoms of chest discomfort, shortness of breath, heart palpitations, lightheadedness, presyncope, syncope, PND, orthopnea or edema. He takes his meds as directed. He works out in his gym at home. 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 [facility] Medical History Impaired fasting glucose Vitamin D deficiency Elevated LFTs Erectile dysfunction Mixed hyperlipidemia Obesity (BMI 30-39.9) Benign essential hypertension Surgical History Hx of umbilical hernia repair (~02/2015) Family History Father Prostate cancer Mother Heart problem Social History Housing: House Alcohol intake: current Alcohol intake frequency: holidays/special occasions only Alcohol type: beer Patient Tobacco Use Status: Never used Tobacco e-Cigarette/Vaping Use: Never Used Second Hand Smoke Exposure: No service: No Current occupational status: employed Cognitive needs: No Hearing needs: No Vision needs: No Review of Systems Const No All systems reviewed & are unremarkable except as noted in HPI and below ENT Denies dizziness Card Denies chest pain, Denies chest pain at rest, Denies chest pain with activity, Denies rapid heart rate, Denies pedal edema, Denies edema, Denies leg edema, Denies lightheadedness, Denies palpitations, Denies dyspnea, Denies dyspnea on exertion and Denies orthopnea Resp Denies cough, Denies dyspnea and Denies dyspnea on exertion GI Denies hematochezia and Denies change in stool character Musc Denies abnormal gait, Denies limited range of motion, Denies muscle cramps, Denies muscle weakness, Denies numbness, Denies radiating pain into limb, Denies stiffness and Denies tingling Neuro Denies abnormal gait, Denies dizziness, Denies numbness and Denies tingling Endo Denies palpitations Physical Exam Vital Signs: Last Vital Signs BP 140/82 H 04/21/23 14:41 BMI result Body Mass Index 32.9 Const General: cooperative, healthy appearing, comfortable and no acute distress Orientation/consciousness: patient oriented x3 Neck Neck: Yes normal visual inspection and Yes no JVD Resp Effort & Inspection: normal respiratory effort Auscultation: clear to auscultation bilaterally, no crackles, no rales, no rhonchi and no wheezes Cardio Jugular venous distension: no JVD Rate: regular rate Rhythm: regular rhythm Heart sounds: S1 normal heart sound present, S2 normal heart sound present, no gallops, no murmurs and no rubs Neuro General: patient oriented x3 Extrem General: Yes normal to inspection, No no pedal edema and No calf tenderness Psych Appearance: grossly normal Mental Status: mental status grossly normal Speech and movement: Normal speech and movement present Assessment & Plan Assessment & Plan (1) Benign essential hypertension: Code(s): I10 - Essential (primary) hypertension Plan: Longstanding history of hypertension. Had been on amlodipine and losartan. Last visit spironolactone and hydrochlorothiazide combination pill added. Echocardiogram done 12/10/2022 showed EF 55-60%, mild LVH, mildly dilated left atrium, normal valves. Labs done 02/03/2023 showed potassium 5.4. His spironolactone was stopped and he was continued on hydrochlorothiazide 25 mg daily. He is also on amlodipine 10 mg daily and losartan 100 mg daily. He is not able to take beta-blockers as he has an EpiPen for bee sting allergies. He tells me he has not been on any other medications for blood pressure control. Renal ultrasound done on 02/26/2023 was normal with normal Doppler exam. Today Blood pressure is mildly elevated. After resting for 10 minutes, recheck done by me 146/82. 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 Reviewed meds with Dr. 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 He recommend use of hydralazine. Will order and have him come to the office in 3 weeks for a blood pressure check. Continue other medications without change. Home sleep study ordered last visit however not completed yet. Will assist patient in getting this scheduled. Reviewed low-salt diet, weight loss, exercise as tolerated. Cardiology follow-up in the office 6 months, sooner if needed. (2) LVH (left ventricular hypertrophy): Code(s): I51.7 - Cardiomegaly Plan: Mild LVH. Needs good blood pressure control. (3) Chest pain: Code(s): R07.9 - Chest pain, unspecified Qualifiers: Chest pain type: other chest pain Qualified Code(s): R07.89 - Other chest pain Plan: Prior reports of chest discomfort without cardiac findings. A CTA of the coronary arteries was done on 12/03/2022 showing excellent quality normal coronary CTA. Today at this visit denies any chest discomfort. Plan Time spent on chart review, documentation, interview and assessment Medications: New hydralazine 25 mg PO TID 90 tabs 5RF Coding Level of Care Code Est Pt Level 4 (84677) Diagnoses Benign essential hypertension I10 LVH (left ventricular hypertrophy) I51.7 Other chest pain R07.89 Chest pain type: other chest pain
== END 2023-04-21 15:20 | disposition home or self-care (01) ==
PROVIDERS: PCP Internal Medicine; Visit Provider Nurse Practitioner Family
DX: I10 Essential (primary) hypertension (principal); I51.7 Cardiomegaly; R07.89 Other chest pain
CPT/HCPCS: 99214

== ENCOUNTER → 2023-04-21 14:39 | Outpatient (BNVA) | payer BC, SELFPAY | PROVIDERS: PCP Internal Medicine; Visit Provider Nurse Practitioner Family ==

== ENCOUNTER 2023-05-06 05:57 | Outpatient (REF) | payer BC, SELFPAY ==
[2023-05-06 06:14] LABS: MANUAL DIFF FLAG NO
[2023-05-06 07:57] LABS: Basophils Absolute Auto 0.1 X10*3/uL (0.0-0.2); Basophils Percent Auto 0.6 % (0-2); Eosinophils Absolute Auto 0.2 X10*3/uL (0.0-0.4); Hematocrit 44.3 % (42.0-52.0); Hemoglobin 15.2 g/dl (14.0-18.0); Imm Gran Abs Auto 0.03 X10*3/uL (0.00-0.03); Imm Gran Pct Auto 0.4 % (0.0-0.4); Lymphocytes Absolute Auto 2.2 X10*3/uL (1.2-4.9); Lymphocytes Percent Auto 28.6 % (20-40); Mean Corpuscular HGB Conc 34.3 g/dl (31.0-36.0); Mean Corpuscular Hemoglobin 29.3 pg (27.0-33.0); Mean Corpuscular Volume 85.5 fL (80.0-98.0); Mean Platelet Volume 9.8 fL (9.4-12.4); Monocytes Absolute Auto 0.6 X10*3/uL (0.1-1.2); Monocytes Percent Auto 7.1 % (2-11); Neutrophils Absolute Auto 4.7 x10*3/uL (2.0-8.3); Neutrophils Percent Auto 60.3 % (45-73); Platelet Count 329 X10*3/uL (160-400); Red Blood Count 5.18 X10*6/uL (4.60-5.80); Red Cell Distribution Width 12.5 % (11.0-16.0); White Blood Count 7.7 X10*3/uL (4.8-10.8)
[2023-05-06 08:29] LABS: Estimated Average Glucose 111 mg/dL; Hemoglobin A1c % 5.5 % (<6.0)
[2023-05-06 08:37] LABS: Alanine Aminotransferase 62 U/L (0-40); Albumin Level 4.2 g/dL (3.5-5.0); Alkaline Phosphatase 55 U/L (39-117); Anion Gap 12 (12-20); Aspartate Amino Transferase 38 U/L (5-37); Bilirubin Total 0.4 mg/dL (0.0-1.0); Blood Urea Nitrogen 28 mg/dL (9-16); Calcium 9.4 mg/dL (8.4-10.2); Carbon Dioxide 24 mmol/L (22-29); Chloride 106 mmol/L (96-108); Cholesterol 160 mg/dL (<200); Estimated Glomerular Filt Rate > 60; Glucose Fasting 93 mg/dL (60-99); HDL Cholesterol 45 mg/dL (>40); LDL Cholesterol Calculated 80 mg/dL (<100); Potassium 3.5 mmol/L (3.3-5.1); Sodium 138 mmol/L (135-145); Total Protein 6.8 g/dL (6.5-8.0); Triglycerides 176 mg/dL (<150)
[2023-05-06 08:43] LABS: Vitamin D 25-OH Total 25.5 ng/mL (>30)
== END 2023-05-06 05:58 | disposition home or self-care (01) ==
LOC: HO.LAB 05:57
PROVIDERS: Absent Provider Internal Medicine; PCP Internal Medicine; Visit Provider Internal Medicine
DX: E78.00 Pure hypercholesterolemia, unspecified (principal); I10 Essential (primary) hypertension; E87.5 Hyperkalemia; R73.01 Impaired fasting glucose; E55.9 Vitamin D deficiency, unspecified
CPT/HCPCS: 36415; 80053; 80061; 82306; 83036; 85025

== ENCOUNTER → 2023-05-12 08:33 | Outpatient (BNVA) | payer BC, SELFPAY | PROVIDERS: PCP Internal Medicine; Visit Provider Nurse Practitioner Family ==

== ENCOUNTER 2023-05-13 09:30 | Outpatient (AMB) | payer BC, SELFPAY ==
[2023-05-13 09:48] VITALS: BP 124/82; PULSE 87; O2SAT 98; BMI 33.4
--- NOTE | 2023-05-13 09:48 | MHC.PC.OV ---
Vital Signs 05/13/23 09:48 Height 5 ft 6 in Weight 207 lb 2 oz BMI 33.4 BP 124/82 Blood Pressure Location Lt brachial Position Sitting Pulse 87 Pulse Source Pulse Oximeter Pulse Oximetry (%) 98 Oxygen Delivery Method Room Air Intake Visit Reasons: hyperlipidemia, elevated LFTs, HTN Seed Core Operator Required: No Accompanied by: Self / Same As Patient Allergies bee venom protein (honey bee) Allergy (Severe, Verified 05/13/23 10:37) Anaphylaxis Medication List - Last Reconciled 05/13/23 by Dwayne Jose MD amlodipine 10 mg PO DAILY 90 days cholecalciferol (vitamin D3) 25 mcg PO DAILY 90 days epinephrine (EpiPen 2-Enoch) 0.3 mg (0.3 mL) IM Q4H PRN ezetimibe 10 mg PO DAILY 90 days fenofibrate 160 mg PO DAILY 90 days hydralazine 25 mg PO TID 90 days hydrochlorothiazide 25 mg PO DAILY 90 days losartan 100 mg PO DAILY 90 days multivitamin (Daily Multi-Vitamin tablet) 1 tab PO DAILY omega-3 fatty acids 1,000 mg PO DAILY 90 days Tobacco use date assessed: 05/13/23 Dental Screening Dental Screen Date: 05/13/23 Did you have a dental visit in the last 12 months?: No Did you have a dental problem in the last 6 months where you did not have access to dental care?: No Was dental information given to patient?: No HPI hyperlipidemia, elevated LFTs, HTN HPI Details Patient comes in today for his follow up visit States that he feels okay He denies any headaches or dizziness Denies any chest pains, no SOB No nausea/vomiting, no abdominal pain No change in bowel habits noted Needs all of his Rx refilled Had his follow up labs done last week - to discuss his results [facility] Medical History Impaired fasting glucose Vitamin D deficiency Elevated LFTs Erectile dysfunction Mixed hyperlipidemia Obesity (BMI 30-39.9) Benign essential hypertension Surgical History Hx of umbilical hernia repair (~02/2015) Family History Father Prostate cancer Mother Heart problem Social History Housing: House Alcohol intake: current Alcohol intake frequency: holidays/special occasions only Alcohol type: beer Patient Tobacco Use Status: Never used Tobacco e-Cigarette/Vaping Use: Never Used Second Hand Smoke Exposure: No service: No Current occupational status: employed Cognitive needs: No Hearing needs: No Vision needs: No Questionnaire PHQ-9 Over the last 2 weeks, how often have you been bothered by any of the following problems? 1. Little interest or pleasure in doing things: not at all 2. Feeling down, depressed, or hopeless: not at all 3. Trouble falling or staying asleep, or sleeping too much: not at all 4. Feeling tired or having little energy: not at all 5. Poor appetite or overeating: not at all 6. Feeling bad about yourself - or that you are a failure or have let yourself or your family down: not at all 7. Trouble concentrating on things, such as reading the newspaper or watching television: not at all 8. Moving or speaking so slowly that other people could have noticed. Or the opposite - being so fidgety or restless that you have been moving around a lot more than usual: not at all 9. Thoughts that you would be better off or of hurting yourself in some way: not at all Total score: 0 Depression Screening Interpretation: Negative Depression Screening Done: Yes 40151 - PHQ-9 Billing: Yes Source: Developed by Drs. Lamberto Arias, Hailee Erazo, Kvng Lundberg and colleagues, with an educational marly from [employer]. Thrive Questionnaire Date Thrive assessed: 05/13/23 I am a: Patient What is your living situation today?: I have a steady place to live Within the past 12 months, did the food you bought not last and you didn't have the money to get more?: Never true Within the past 12 months, did you worry whether your food would run out before you got money to buy more?: Never true Do you have trouble paying for medicines?: No Do you have trouble getting transportation to medical appointments?: No Do you have trouble paying your heating and electricity bill?: No Do you have trouble taking care of your child, family member or friend?: No Do you have trouble with day-to-day activities such as bathing, preparing meals, shopping, managing finances, etc.?: No Are you currently unemployed and looking for a job?: No Are you interested in more education?: No Please select the resources that you would like help with: None Currently or been in a relationship where the following occur: no concerns reported THRIVE Score: 0 AUDIT C Alcohol Use Questionnaire (AUDIT-C) 1. How often do you have a drink containing alcohol?: Monthly or less 2. How many drinks containing alcohol do you have on a typical day when you are drinking?: 1 or 2 3. How often do you have six or more drinks on one occasion?: Never Total Score: 1 Score Reviewed/Action Taken: Yes SAHNTELLE-7 AMB Questionnaire SHANTELLE-7 Date SHANTELLE - 7 assessed: 05/13/23 Feeling nervous, anxious, or on edge: 0 = Not at all Not being able to stop or control worryin = Not at all Worrying too much about different things: 0 = Not at all Trouble relaxin = Not at all Being so restless that it is hard to sit still: 0 = Not at all Becoming easily annoyed or irritable: 0 = Not at all Feeling afraid as if something awful might happen: 0 = Not at all Total SHANTELLE-7 score (0-4 normal; 5-9 mild; 10-14 moderate; 15-21 severe): 0 Source: Developed by Drs. Lamberto Arias, Hailee Erazo, Kvng Lundberg and colleagues, with an educational marly from [employer]. Review of Systems Const Denies chills, Denies fatigue, Denies fever(s) and Denies headache(s) ENT Denies dysphagia, Denies dizziness, Denies otalgia, Denies headache(s), Denies neck pain, Denies odynophagia and Denies sore throat Card Denies chest pain, Denies rapid heart rate, Denies irregular heart rhythm, Denies palpitations and Denies dyspnea Resp Denies cough, Denies dyspnea and Denies wheezing GI Denies abdominal pain, Denies constipation, Denies dysphagia, Denies heartburn, Denies diarrhea, Denies nausea, Denies odynophagia and Denies vomiting Denies difficulty urinating, Denies dysuria and Denies urinary frequency Musc Denies back pain, Denies arthralgias and Denies neck pain Skin/Breast Denies rash Neuro Denies dizziness and Denies headache(s) Endo Denies fatigue and Denies palpitations Aller/Immun Denies wheezing Physical exam (Primary Care) Vital Signs: Last Vital Signs Pulse 87 05/13/23 09:48 BP 124/82 05/13/23 09:48 Pulse Ox 98 05/13/23 09:48 Oxygen Delivery Method Room Air 05/13/23 09:48 BMI result Body Mass Index 33.4 Tobacco/Smoking Status: Tobacco use Status Tobacco use date assessed 05/13/23 05/13/23 09:56 Patient Tobacco Use Status Never used Tobacco 05/13/23 09:49 e-Cigarette/Vaping Use Never Used 05/13/23 09:49 PHQ-9: PHQ-9 Score PHQ-9: Total score 0 05/13/23 09:56 Depression Screening Interpretation: Negative Thrive Assessment: Date of Thrive Assessment Date Thrive assessed 05/13/23 05/13/23 09:56 Currently or been in a relationship where the following occur: no concerns reported Const General: no acute distress and alert HENMT Ears: TM's normal bilaterally and EAC's normal Throat: Yes posterior oropharynx normal and Yes tonsils normal (no TP congestion) Neck Neck: Yes no lymphadenopathy and Yes supple Resp Auscultation: clear to auscultation bilaterally, no rales and no wheezes Cardio Rate: regular rate Rhythm: regular rhythm Heart sounds: no murmurs GI Palpation (GI): Soft to palpation and nontender Auscultation: normal bowel sounds General: Yes no CVA tenderness Back/Spine/Pelvis Back: no CVA tenderness Thoracic/Lumbar Spine: No lumbar spinal tenderness Skin Rashes: no rashes Extrem General: Yes no clubbing, cyanosis or edema Results Reviewed Results Reviewed: Laboratory Tests 05/06/23 06:13 WBC 7.7 Hgb 15.2 Hct 44.3 Plt Count 329 Sodium 138 Potassium 3.5 Creatinine 1.15 Estimated GFR > 60 Fasting Glucose 93 Hemoglobin A1c % 5.5 Calcium 9.4 AST 38 H ALT 62 H Triglycerides 176 H Cholesterol 160 LDL Cholesterol, Calc 80 HDL Cholesterol 45 25-OH Vitamin D Total 25.5 L Assessment and Plan Assessment & Plan (1) Mixed hyperlipidemia: Code(s): E78.2 - Mixed hyperlipidemia Plan: Results of his labs done last week reviewed and discussed with patient - advised that his cholesterol numbers have improved again from previous Reinforced low cholesterol diet Continue Fenofibrate 160 mg QD and Ezetimibe 10 mg QD Will recheck his labs and fasting lipids in 4 months for follow up (2) Benign essential hypertension: Code(s): I10 - Essential (primary) hypertension Plan: Reinforced low sodium diet - goal is systolic BP of at least 130 mm or less Continue Losartan 100 mg QD, Amlodipine 10 mg QD and HCTZ 25 mg QD He was recently on Aldactazide 25-25 mg QD but this had to be discontinued due to hyperkalemia on his recent labs; was switched back to HCTZ 25 mg QD He also could not tolerate Hydralazine (25 mg TID) in the past due to dizziness and beta blockers are not advisable given his allergies and potential need to use Epipen for anaphylactic reactions but he was started back on this by cardiology a few weeks ago due to suboptimally controlled BP and he has had no issues so far on Hydralazine He had a renal doppler done in February 2023 that came out normal; was supposed to also go for a home sleep study for further evaluation a couple of months ago but unclear if he did get this done or not Follow up with cardiology as scheduled (3) Elevated LFTs: Code(s): R79.89 - Other specified abnormal findings of blood chemistry Plan: Improving - was most likely related to his weight and cholesterol level Reinforced avoidance of alcohol and Tylenol-containing meds - patient states that he has not drank any alcohol in a few months Will continue to monitor his LFTs regularly (4) Impaired fasting glucose: Code(s): R73.01 - Impaired fasting glucose Plan: His FBS is now normal on his recent labs; HgbA1c was also normal at 5.5% on his labs done last week Reinforced low calorie/low carb diet and exercise as tolerated (5) Hyperkalemia: Code(s): E87.5 - Hyperkalemia Plan: His serum potassium level is back to normal on his recent labs Patient was on Aldactazide at the time and this was discontinued and he was switched over to HCTZ alone by cardiology a few months ago Will continue to monitor his serum potassium and electrolytes levels regularly (6) Vitamin D deficiency: Code(s): E55.9 - Vitamin D deficiency, unspecified Plan: Continue Vitamin D 11171 units once a week (7) Obesity (BMI 30-39.9): Code(s): E66.9 - Obesity, unspecified Plan: Reinforced diet/exercise as tolerated/lose weight - he has gained some weight since his last visit States that he normally gets laid off in the winter and he gains weight as a result; his weight will usually start going down once he gets back to work sometime in June Plan Follow up in 4 months Orders: Orders Comprehensive [place]. Panel Fast 4 Months E78.00 - Pure hypercholesterolemia, unspecified Lipid Panel 4 Months E78.00 - Pure hypercholesterolemia, unspecified Vitamin D 25-OH Total 4 Months E55.9 - Vitamin D deficiency, unspecified Medications: Changed From hydralazine 25 mg PO TID 90 tabs 5RF To hydralazine 25 mg PO TID 90 days 270 tabs 3RF From hydrochlorothiazide 25 mg PO DAILY 30 tabs 5RF To hydrochlorothiazide 25 mg PO DAILY 90 days 90 tabs 3RF From omega-3 fatty acids 1,000 mg PO DAILY 90 caps 1RF E78.2 - Mixed hyperlipidemia To omega-3 fatty acids 1,000 mg PO DAILY 90 days 90 caps 3RF E78.2 - Mixed hyperlipidemia From cholecalciferol (vitamin D3) 25 mcg PO DAILY 90 tabs 1RF R79.89 - Other specified abnormal findings of blood chemistry To cholecalciferol (vitamin D3) 25 mcg PO DAILY 90 days 90 tabs 3RF R79.89 - Other specified abnormal findings of blood chemistry Refilled amlodipine 10 mg PO DAILY 90 days 90 tabs 3RF I10 - Essential (primary) hypertension ezetimibe 10 mg PO DAILY 90 days 90 tabs 3RF losartan 100 mg PO DAILY 90 days 90 tabs 3RF I10 - Essential (primary) hypertension fenofibrate 160 mg PO DAILY 90 days 90 tabs 3RF Coding Level of Care Code Est Pt Level 4 (14355) Diagnoses Mixed hyperlipidemia E78.2 Benign essential hypertension I10 Elevated LFTs R79.89 Impaired fasting glucose R73.01 Hyperkalemia E87.5 Vitamin D deficiency E55.9 Obesity (BMI 30-39.9) E66.9
== END 2023-05-13 10:46 | disposition home or self-care (01) ==
PROVIDERS: PCP Internal Medicine; Visit Provider Internal Medicine
DX: E78.2 Mixed hyperlipidemia (principal); I10 Essential (primary) hypertension; R79.89 Other specified abnormal findings of blood chemistry; R73.01 Impaired fasting glucose; E87.5 Hyperkalemia; E55.9 Vitamin D deficiency, unspecified
CPT/HCPCS: 99214

== ENCOUNTER → 2023-05-27 08:35 | Outpatient (REF) | payer BC, SELFPAY | LOC: HO.SL 08:35 | PROVIDERS: PCP Internal Medicine; Visit Provider Internal Medicine | DX: Z13.89 Encounter for screening for other disorder (principal) ==

== ENCOUNTER 2023-06-05 14:51 | Outpatient (AMB) | payer BC, SELFPAY ==
[2023-06-05 15:11] VITALS: BP 162/110; PULSE 88; RESP 17; O2SAT 98; BMI 33.3
--- NOTE | 2023-06-05 15:11 | MHC.PC.OV ---
Vital Signs 06/05/23 15:11 06/05/23 15:44 Height 5 ft 6 in Weight 206 lb 2 oz BMI 33.3 BP 162/110 H 160/100 H Blood Pressure Location Lt brachial Lt brachial Position Sitting Sitting Respiration 17 Pulse 88 Pulse Source Pulse Oximeter Pulse Oximetry (%) 98 Oxygen Delivery Method Room Air Intake Visit Reasons: Annual exam Intake Note: Patient is here today for a physical. Clinical Research Associate Required: No Accompanied by: Self / Same As Patient Allergies bee venom protein (honey bee) Allergy (Severe, Verified 06/05/23 15:37) Anaphylaxis Medication List - Last Reconciled 06/05/23 by Dwayne Jose MD amlodipine 10 mg PO DAILY 90 days cholecalciferol (vitamin D3) 25 mcg PO DAILY 90 days epinephrine (EpiPen 2-Enoch) 0.3 mg (0.3 mL) IM Q4H PRN ezetimibe 10 mg PO DAILY 90 days fenofibrate 160 mg PO DAILY 90 days hydralazine 25 mg PO TID 90 days hydrochlorothiazide 25 mg PO DAILY 90 days losartan 100 mg PO DAILY 90 days multivitamin (Daily Multi-Vitamin tablet) 1 tab PO DAILY omega-3 fatty acids 1,000 mg PO DAILY 90 days Tobacco use date assessed: 05/13/23 Dental Screening Dental Screen Date: 06/05/23 Did you have a dental visit in the last 12 months?: Yes Did you have a dental problem in the last 6 months where you did not have access to dental care?: No Was dental information given to patient?: Patient has dentist HPI Annual exam HPI Details Patient comes in today for his annual physical examination States that he feels okay He denies any headaches or dizziness Denies any chest pains, no SOB No nausea/vomiting, no abdominal pain No change in bowel habits noted He denies any acute urinary symptoms Patient had all of his follow up labs done last month and also had his EGD and colonoscopy done at [facility] earlier this week on 06/01/2023 His colonoscopy came out normal aside from some divertiuclosis and internal and external hemorrhoids and he was advised that he will need a repeat colonoscopy in 10 years His EGD though revealed (+) grade B esophagitis compatible with reflux esophagitis; biopsies were obtained to assess for eosinophilic esophagitis and patient states that he was recently contacted and informed that his biopsies came out normal [facility] Medical History (Updated 06/05/23 @ 16:53 by Dwayne Jose MD) Impaired fasting glucose Vitamin D deficiency Elevated LFTs Erectile dysfunction Mixed hyperlipidemia Obesity (BMI 30-39.9) Benign essential hypertension Surgical History (Updated 06/05/23 @ 16:07 by Dwayne Jose MD) History of esophagogastroduodenoscopy (EGD) History of colonoscopy Hx of umbilical hernia repair (~02/2015) Family History Father Prostate cancer Mother Heart problem Social History Housing: House Alcohol intake: current Alcohol intake frequency: holidays/special occasions only Alcohol type: beer Patient Tobacco Use Status: Never used Tobacco e-Cigarette/Vaping Use: Never Used Second Hand Smoke Exposure: No service: No Current occupational status: employed Cognitive needs: No Hearing needs: No Vision needs: No Questionnaire PHQ-9 Over the last 2 weeks, how often have you been bothered by any of the following problems? Depression Screening Interpretation: Negative Depression Screening Done: Yes Source: Developed by Drs. Lamberto Arias, Kvng Whittaker and colleagues, with an educational marly from [employer]. Thrive Questionnaire Date Thrive assessed: 05/13/23 Currently or been in a relationship where the following occur: no concerns reported THRIVE Score: 0 SHANTELLE-7 AMB Questionnaire SHANTELLE-7 Date SHANTELLE - 7 assessed: 05/13/23 Source: Developed by Drs. Lamberto Arias, Kvng Whittaker and colleagues, with an educational marly from [employer]. Review of Systems Const Denies chills, Denies fatigue, Denies fever(s), Denies headache(s), Denies malaise and Denies weakness Eyes Denies blurry vision, Denies change in vision, Denies irritation and Denies itchy eyes ENT Denies dysphagia, Denies dizziness, Denies otalgia, Denies headache(s), Denies nasal congestion, Denies neck pain, Denies odynophagia and Denies sore throat Card Denies chest pain, Denies rapid heart rate, Denies irregular heart rhythm, Denies palpitations and Denies dyspnea Resp Denies chest congestion, Denies cough, Denies dyspnea and Denies wheezing GI Denies abdominal pain, Denies bloating, Denies constipation, Denies dysphagia, Denies heartburn, Denies diarrhea, Denies nausea, Denies odynophagia and Denies vomiting Denies hematuria, Denies difficulty urinating, Denies dysuria, Denies urinary frequency and Denies urinary urgency Musc Denies back pain, Denies arthralgias, Denies joint swelling, Denies muscle weakness and Denies neck pain Skin/Breast Denies change in pigmentation, Denies lesions, Denies rash and Denies unusual bruising Neuro Denies dizziness, Denies headache(s), Denies paresthesias and Denies weakness Endo Denies fatigue and Denies palpitations Aller/Immun Denies itchy eyes and Denies wheezing Physical exam (Primary Care) Vital Signs: Last Vital Signs Pulse 88 06/05/23 15:11 Resp 17 06/05/23 15:11 BP 162/110 H 06/05/23 15:11 Pulse Ox 98 06/05/23 15:11 Oxygen Delivery Method Room Air 06/05/23 15:11 BMI result Body Mass Index 33.3 Tobacco/Smoking Status: Tobacco use Status Tobacco use date assessed 05/13/23 06/05/23 15:15 Patient Tobacco Use Status Never used Tobacco 06/05/23 15:15 e-Cigarette/Vaping Use Never Used 06/05/23 15:15 Depression Screening Interpretation: Negative Thrive Assessment: Date of Thrive Assessment Date Thrive assessed 05/13/23 06/05/23 15:15 Currently or been in a relationship where the following occur: no concerns reported Const General: no acute distress, alert and awake Orientation/consciousness: patient oriented x3 HENMT Head: Yes normocephalic and Yes atraumatic Ears: external ears normal, TM's normal bilaterally and EAC's normal General nose exam: No nasal discharge present Face and sinus: Yes normal facial exam and Yes sinuses nontender Teeth and gingiva: dentition normal Throat: Yes posterior oropharynx normal and Yes tonsils normal (no TP congestion) Eyes Eyelids: Yes eyelids normal Conjunctivae: conjunctivae normal Pupils: Equal, round and reactive pupils present EOM: EOMs intact bilaterally Neck Neck: Yes no lymphadenopathy and Yes supple Thyroid: Thyroid normal Resp Auscultation: clear to auscultation bilaterally, no rales and no wheezes Cardio Rate: regular rate Rhythm: regular rhythm Heart sounds: no murmurs GI Palpation (GI): Soft to palpation, nontender and No hepatosplenomegaly present Auscultation: normal bowel sounds General: Yes no CVA tenderness Back/Spine/Pelvis Back: no CVA tenderness Thoracic/Lumbar Spine: thoracic and lumbar spine normal to inspection Skin Lesions: no lesions Rashes: no rashes Neuro General: patient oriented x3, moves all extremities, no focal motor deficits and CN's II-XI intact bilaterally Cranial nerves: Yes Equal, round and reactive pupils present Cognition (Neuro): normal cognition Gait exam (Neuro): Normal gait present Extrem General: Yes no clubbing, cyanosis or edema Results Reviewed Results Reviewed: Laboratory Tests 05/06/23 06:13 WBC 7.7 Hgb 15.2 Hct 44.3 Plt Count 329 Sodium 138 Potassium 3.5 Creatinine 1.15 Estimated GFR > 60 Fasting Glucose 93 Hemoglobin A1c % 5.5 Calcium 9.4 AST 38 H ALT 62 H Triglycerides 176 H Cholesterol 160 LDL Cholesterol, Calc 80 HDL Cholesterol 45 25-OH Vitamin D Total 25.5 L Assessment and Plan Assessment & Plan (1) Annual physical exam: Code(s): Z00.00 - Encounter for general adult medical examination without abnormal findings Plan: Patient had his follow up labs done last month - labs were reviewed and discussed with him at his last visit a few weeks ago He is up-to-date with his colon cancer screening - just had his colonoscopy done earlier this week on 06/01/2023; recommend repeat colonoscopy in 10 years (2) Esophagitis: Comment: reflux esophagitis Code(s): K20.90 - Esophagitis, unspecified without bleeding Plan: His EGD done earlier this week also revealed findings of grade B esophagitis; biopsies were reportedly negative Reinforced dietary restrictions Will start him on Pantoprazole 40 mg QD Follow up with GI as scheduled (3) Benign essential hypertension: Code(s): I10 - Essential (primary) hypertension Plan: Reinforced low sodium diet - goal is systolic BP of at least 130 mm or less His blood pressure is quite high today even when it was rechecked but his BP was well-controlled when he was just here a few weeks ago Continue Losartan 100 mg QD, Amlodipine 10 mg QD, Hydralazine 25 mg TID and HCTZ 25 mg QD for now He was previously on Aldactazide 25-25 mg QD but this had to be discontinued due to hyperkalemia on his recent labs and he was switched back to HCTZ 25 mg QD He also could not tolerate Hydralazine in the past due to dizziness and beta blockers are not advisable given his allergies and potential need to use Epipen for anaphylactic reactions but he was started back on this by cardiology a few weeks ago due to suboptimally controlled BP and he has had no issues so far on Hydralazine He had a renal doppler done in February 2023 that came out normal States that he just completed and turned in his home sleep study a few days ago - report is not yet available to review at this time He is instructed to start monitoring his blood pressure at home regularly and to call back IF his systolic BP remains consistently higher than 150 to 160 mm over the next week or two Follow up with cardiology as scheduled (4) Mixed hyperlipidemia: Code(s): E78.2 - Mixed hyperlipidemia Plan: Reinforced low cholesterol diet Continue Fenofibrate 160 mg QD and Ezetimibe 10 mg QD Will recheck his labs and fasting lipids in 4 months for follow up (5) Elevated LFTs: Code(s): R79.89 - Other specified abnormal findings of blood chemistry Plan: Improving on his recent labs These are most likely related to his weight and cholesterol level Reinforced avoidance of alcohol and Tylenol-containing meds - patient states that he has not drank any alcohol in over a month now Will continue to monitor his LFTs regularly (6) Impaired fasting glucose: Code(s): R73.01 - Impaired fasting glucose Plan: His FBS is now normal on his recent labs; HgbA1c was also normal at 5.5% on his labs done a few weeks ago Reinforced low calorie/low carb diet and exercise as tolerated (7) Hyperkalemia: Code(s): E87.5 - Hyperkalemia Plan: His serum potassium level was back to normal on his recent labs Patient was on Aldactazide previously and this was discontinued and he was switched over to HCTZ alone by cardiology a few months ago Will continue to monitor his serum potassium and electrolytes levels regularly (8) Vitamin D deficiency: Code(s): E55.9 - Vitamin D deficiency, unspecified Plan: Continue Vitamin D 82281 units once a week (9) Obesity (BMI 30-39.9): Code(s): E66.9 - Obesity, unspecified Plan: Reinforced diet/exercise as tolerated/lose weight Plan Follow up in 4 months Orders: Orders Lipid Panel 4 Months E78.00 - Pure hypercholesterolemia, unspecified Complete Blood Count Auto Diff 4 Months D64.9 - Anemia, unspecified UA CC w/rflx Micro + Cult 4 Months R30.0 - Dysuria Comprehensive [place]. Panel Fast 4 Months E78.00 - Pure hypercholesterolemia, unspecified Medications: New pantoprazole 40 mg PO DAILY 90 tabs 1RF 90 days K20.90 - Esophagitis, unspecified without bleeding Coding Level of Care Code Est Pt Prev Care 40-64y(90732) Diagnoses Annual physical exam Z00.00 Esophagitis K20.90 Benign essential hypertension I10 Mixed hyperlipidemia E78.2 Elevated LFTs R79.89 Impaired fasting glucose R73.01 Hyperkalemia E87.5 Vitamin D deficiency E55.9 Obesity (BMI 30-39.9) E66.9
[2023-06-05 15:44] VITALS: BP 160/100
== END 2023-06-05 15:49 | disposition home or self-care (01) ==
PROVIDERS: PCP Internal Medicine; Visit Provider Internal Medicine
DX: Z00.00 Encounter for general adult medical examination without abnormal findings (principal); K20.90 Esophagitis, unspecified without bleeding; E66.9 Obesity, unspecified; Z68.33 Body mass index [BMI] 33.0-33.9, adult; I10 Essential (primary) hypertension; E78.2 Mixed hyperlipidemia; R79.89 Other specified abnormal findings of blood chemistry; R73.01 Impaired fasting glucose; E87.5 Hyperkalemia; E55.9 Vitamin D deficiency, unspecified
CPT/HCPCS: 99396

== ENCOUNTER 2023-12-01 10:53 | Outpatient (AMB) | payer BC, SELFPAY ==
[2023-12-01 10:57] VITALS: BP 162/80; PULSE 75; BMI 32.5
--- NOTE | 2023-12-01 10:57 | MHC.OFFVIS ---
Vital Signs 12/01/23 10:57 Height 5 ft 6 in Weight 201 lb 8.04 oz BMI 32.5 BP 162/80 H Blood Pressure Location Lt brachial Position Sitting Pulse 75 Intake Visit Reasons: 6 mth fu (rs) [employer] Technician Required: No Accompanied by: Self / Same As Patient Allergies bee venom protein (honey bee) Allergy (Severe, Verified 06/05/23 15:37) Anaphylaxis Medication List - Last Reconciled 12/01/23 by Baldemar Magaña MD amlodipine 10 mg PO DAILY 90 days cholecalciferol (vitamin D3) 25 mcg PO DAILY 90 days epinephrine (EpiPen 2-Enoch) 0.3 mg (0.3 mL) IM Q4H PRN ezetimibe 10 mg PO DAILY 90 days fenofibrate 160 mg PO DAILY 90 days hydralazine 25 mg PO TID 90 days hydrochlorothiazide 25 mg PO DAILY 90 days losartan 100 mg PO DAILY 90 days multivitamin (Daily Multi-Vitamin tablet) 1 tab PO DAILY omega-3 fatty acids 1,000 mg PO DAILY 90 days pantoprazole 40 mg PO DAILY 90 days HPI Comments Details: Titus returns for follow-up regarding hypertension. He was originally seen in consultation regarding hypertension and chest pain. He has had hypertension for almost 2 decades. Various meds have been tried. Currently, on losartan, amlodipine, hydrochlorothiazide. He was also put on spironolactone but potassium went up. With hydralazine, he had some dizziness but he is still taking it. Overall, quite active without any limitations. He has completed an echocardiogram, coronary CTA, renal Doppler. [facility] Medical History (Updated 06/05/23 @ 16:53 by Dwayne Jose MD) Impaired fasting glucose Vitamin D deficiency Elevated LFTs Erectile dysfunction Mixed hyperlipidemia Obesity (BMI 30-39.9) Benign essential hypertension Surgical History History of esophagogastroduodenoscopy (EGD) History of colonoscopy Hx of umbilical hernia repair (~02/2015) Family History Father Prostate cancer Mother Heart problem Social History Housing: House Alcohol intake: current Alcohol intake frequency: holidays/special occasions only Alcohol type: beer Patient Tobacco Use Status: Never used Tobacco e-Cigarette/Vaping Use: Never Used Second Hand Smoke Exposure: No service: No Current occupational status: employed Cognitive needs: No Hearing needs: No Vision needs: No Review of Systems Const Denies chills, Denies fatigue, Denies fever(s), Denies weight gain and Denies weight loss ENT Denies dizziness Card Denies chest pain, Denies leg edema, Denies lightheadedness, Denies palpitations, Denies dyspnea on exertion, Denies orthopnea and Denies other Resp Denies cough and Denies dyspnea on exertion GI Denies hematochezia and Denies change in stool character Musc Denies abnormal gait, Denies muscle weakness, Denies numbness, Denies radiating pain into limb and Denies tingling Neuro Denies abnormal gait, Denies dizziness, Denies numbness and Denies tingling Endo Denies fatigue and Denies palpitations Physical Exam Vital Signs: Last Vital Signs Pulse 75 12/01/23 10:57 BP 162/80 H 12/01/23 10:57 BMI result Body Mass Index 32.5 Const General: comfortable and no acute distress Orientation/consciousness: patient oriented x3 HEENT Other: Unremarkable Head: Yes normal to inspection Neck Neck: Yes normal visual inspection Chest Chest palpation & inspection: normal inspection of the chest Resp Auscultation: clear to auscultation bilaterally Cardio Palpation: normal PMI Heart sounds: S1 normal heart sound present, S2 normal heart sound present, no gallops, no murmurs and no rubs GI Palpation (GI): Soft to palpation Back/Spine/Pelvis Other: unremarkable Skin General skin exam: no rashes or lesions noted Neuro General: patient oriented x3 Extrem General: Yes normal to inspection Psych Mental Status: mental status grossly normal Office Procedures EKG Details: EKG with sinus rhythm at 75/Min; can not exclude old inferior infarct; [place] [id number], Complete Assessment & Plan Assessment & Plan (1) Chest pain: Code(s): R07.9 - Chest pain, unspecified Category: Medical Qualifiers: Chest pain type: other chest pain Qualified Code(s): R07.89 - Other chest pain Plan: Coronary CT is unremarkable. Echocardiogram with LVEF of 55-60%. Mild LVH/diastolic dysfunction but otherwise unremarkable. Suspect noncardiac pain. No further workup at this time. Also no recurrence. (2) Benign essential hypertension: Code(s): I10 - Essential (primary) hypertension Category: Medical Plan: Currently, medications include amlodipine, losartan, hydralazine, hydrochlorothiazide. He took spironolactone and the potassium went up and it was stopped. With higher dose of hydralazine, he has had some dizziness. However, as the BP is still high we can go up to 50 mg t.i.d.. Unable to use beta-blockers as he needs EpiPen for series allergic reactions. Patient states that blood pressure goes up mainly in office, but at home it is lower. Normal renal Doppler. Recommended 24 hour blood pressure monitor. Also refer to nephrology. Sleep study ordered in the past but not completed. Plan Total time spent including review of data, counseling, documentation, coordination of care-31 minutes. Orders: Referrals Nephrology Referral I10 - Essential (primary) hypertension Medications: New hydralazine 50 mg PO TID 270 tabs 3RF 90 days Discontinued hydralazine Discontinued Reason: Doctor's Order 25 mg PO TID 90 days 270 tabs 3RF Coding Level of Care Code Est Pt Level 4 (55382) Diagnoses Other chest pain R07.89 Chest pain type: other chest pain Benign essential hypertension I10 CPT Codes EKG - CPT: 09159-[id number], Complete ([id number])
== END 2023-12-01 11:20 | disposition home or self-care (01) ==
PROVIDERS: PCP Internal Medicine; Visit Provider Internal Medicine
DX: R07.89 Other chest pain (principal); I10 Essential (primary) hypertension
CPT/HCPCS: 93010; 99214

== ENCOUNTER → 2023-12-01 10:53 | Outpatient (BNVA) | payer BC, SELFPAY | PROVIDERS: PCP Internal Medicine; Visit Provider Internal Medicine | DX: R07.89 Other chest pain (principal); I10 Essential (primary) hypertension; Z79.899 Other long term (current) drug therapy | CPT/HCPCS: 93005 ==

== ENCOUNTER 2024-01-26 06:05 | Outpatient (REF) | payer BC, SELFPAY ==
[2024-01-26 06:19] LABS: MANUAL DIFF FLAG NO
[2024-01-26 07:50] LABS: Basophils Absolute Auto 0.1 X10*3/uL (0.0-0.2); Basophils Percent Auto 0.6 % (0-2); Eosinophils Absolute Auto 0.4 X10*3/uL (0.0-0.4); Eosinophils Percent Auto 4.8 % (0-4); Hematocrit 47.4 % (42.0-52.0); Hemoglobin 16.2 g/dl (14.0-18.0); Imm Gran Abs Auto 0.06 X10*3/uL (0.00-0.03); Imm Gran Pct Auto 0.7 % (0.0-0.4); Lymphocytes Absolute Auto 2.3 X10*3/uL (1.2-4.9); Lymphocytes Percent Auto 26.6 % (20-40); Mean Corpuscular HGB Conc 34.2 g/dl (31.0-36.0); Mean Corpuscular Hemoglobin 29.6 pg (27.0-33.0); Mean Corpuscular Volume 86.7 fL (80.0-98.0); Mean Platelet Volume 9.7 fL (9.4-12.4); Monocytes Absolute Auto 0.5 X10*3/uL (0.1-1.2); Monocytes Percent Auto 6.4 % (2-11); Neutrophils Absolute Auto 5.2 x10*3/uL (2.0-8.3); Neutrophils Percent Auto 60.9 % (45-73); Platelet Count 265 X10*3/uL (160-400); Red Blood Count 5.47 X10*6/uL (4.60-5.80); Red Cell Distribution Width 12.7 % (11.0-16.0); White Blood Count 8.5 X10*3/uL (4.8-10.8)
[2024-01-26 08:07] LABS: Appearance Urine Clear; Color Urine Yellow; Glucose Urine UA Negative (Negative); Leukocyte Esterase Urine Negative (Negative); Nitrite Urine Negative (Negative); Urine Blood Negative (Negative); Urine Ketones Negative (Negative); Urine Protein Negative (Neg-Trace)
[2024-01-26 08:32] LABS: Alanine Aminotransferase 42 U/L (0-40); Albumin Level 4.4 g/dL (3.5-5.0); Alkaline Phosphatase 64 U/L (39-117); Anion Gap 14 (12-20); Aspartate Amino Transferase 28 U/L (5-37); Bilirubin Total 0.6 mg/dL (0.0-1.0); Blood Urea Nitrogen 22 mg/dL (9-16); Calcium 9.5 mg/dL (8.4-10.2); Carbon Dioxide 25 mmol/L (22-29); Chloride 105 mmol/L (96-108); Cholesterol 210 mg/dL (<200); Estimated Glomerular Filt Rate > 60; Glucose Fasting 96 mg/dL (60-99); HDL Cholesterol 50 mg/dL (>40); LDL Cholesterol Calculated 102 mg/dL (<100); Potassium 3.7 mmol/L (3.3-5.1); Sodium 140 mmol/L (135-145); Triglycerides 294 mg/dL (<150)
[2024-01-26 08:48] LABS: Vitamin D 25-OH Total 52.7 ng/mL (>30)
== END 2024-01-26 06:06 | disposition home or self-care (01) ==
LOC: HO.LAB 06:05
PROVIDERS: PCP Internal Medicine; Visit Provider Internal Medicine
DX: E78.00 Pure hypercholesterolemia, unspecified (principal); E55.9 Vitamin D deficiency, unspecified; D64.9 Anemia, unspecified; R30.0 Dysuria
CPT/HCPCS: 36415; 80053; 80061; 81003; 82306; 85025

== ENCOUNTER 2024-02-04 11:11 | Outpatient (AMB) | payer BC, SELFPAY ==
--- NOTE | 2024-02-04 11:13 | A.OFFPC_ITS ---
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 Accompanied by: Self / Same As Patient Allergies bee venom protein (honey bee) Allergy (Severe, Verified 02/04/24 11:48) Anaphylaxis Medication List - Last Reconciled 02/04/24 by Dwayne Jose MD amlodipine 10 mg PO DAILY 90 days cholecalciferol (vitamin D3) 25 mcg PO DAILY 90 days epinephrine (EpiPen 2-Enoch) 0.3 mg (0.3 mL) IM Q4H PRN ezetimibe 10 mg PO DAILY 90 days fenofibrate 160 mg PO DAILY 90 days hydralazine 50 mg PO TID 90 days hydrochlorothiazide 25 mg PO DAILY 90 days losartan 100 mg PO DAILY 90 days multivitamin (Daily Multi-Vitamin tablet) 1 tab PO DAILY omega-3 fatty acids 1,000 mg PO DAILY 90 days pantoprazole 40 mg PO DAILY 90 days Tobacco use date assessed: 02/04/24 Dental Screening Dental Screen Date: 02/04/24 Did you have a dental visit in the last 12 months?: No Did you have a dental problem in the last 6 months where you did not have access to dental care?: No Was dental information given to patient?: No HPI Follow Up HPI Details Patient comes in today for his follow up visit States that he feels okay He denies any headaches but reports (+) on and off dizziness, often after he takes his BP meds in the morning He is currently on Losartan 100 mg QD, Amlodipine 10 mg QD and Hydralazine 50 mg TID; he is also supposed to be on HCTZ 25 mg QD but patient is currently not sure if he is still taking it - states that he will look into this when he gets home and check back with us on this as soon as he finds out States that he used to take all of his meds in the morning and when he started getting the aforementioned dizzy spells, he started splitting up his meds and now takes his Losartan at night States that his dizzy spells would usually last for about an hour or so and would then gradually subside He denies any chest pains, no increased SOB No nausea/vomiting, no abdominal pain No change in bowel habits noted Adds that he recently noticed a raised lesion on the left side of his face and is wondering if he should get this checked out further or not Needs his Pantoprazole Rx refilled He had his follow up labs done last week - to discuss his results [facility], [facility] Medical History (Updated 02/04/24 @ 11:44 by Dwayne Jose MD) Impaired fasting glucose Vitamin D deficiency Elevated LFTs Erectile dysfunction Mixed hyperlipidemia Obesity (BMI 30-39.9) Benign essential hypertension Surgical History History of esophagogastroduodenoscopy (EGD) History of colonoscopy Hx of umbilical hernia repair (~02/2015) Family History Father Prostate cancer Mother Heart problem Social History Housing: House Alcohol intake: current Alcohol intake frequency: holidays/special occasions only Alcohol type: beer Patient Tobacco Use Status: Never used Tobacco e-Cigarette/Vaping Use: Never Used Second Hand Smoke Exposure: No service: No Current occupational status: employed Cognitive needs: No Hearing needs: No Vision needs: No Questionnaire PHQ-9 Over the last 2 weeks, how often have you been bothered by any of the following problems? 1. Little interest or pleasure in doing things: not at all 2. Feeling down, depressed, or hopeless: not at all 3. Trouble falling or staying asleep, or sleeping too much: not at all 4. Feeling tired or having little energy: not at all 5. Poor appetite or overeating: not at all 6. Feeling bad about yourself - or that you are a failure or have let yourself or your family down: not at all 7. Trouble concentrating on things, such as reading the newspaper or watching television: not at all 8. Moving or speaking so slowly that other people could have noticed. Or the opposite - being so fidgety or restless that you have been moving around a lot more than usual: not at all 9. Thoughts that you would be better off or of hurting yourself in some way: not at all Total score: 0 Depression Screening Interpretation: Negative Depression Screening Done: Yes 33811 - PHQ-9 Billing: Yes Source: Developed by Drs. Lamberto Arias, Hailee Erazo, Kvng Lundberg and colleagues, with an educational marly from [employer]. Thrive Questionnaire Date Thrive assessed: 02/04/24 I am a: Patient What is your living situation today?: I have a steady place to live Within the past 12 months, did the food you bought not last and you didn't have the money to get more?: Never true Within the past 12 months, did you worry whether your food would run out before you got money to buy more?: Never true Do you have trouble paying for medicines?: No Do you have trouble getting transportation to medical appointments?: No Do you have trouble paying your heating and electricity bill?: No Do you have trouble taking care of your child, family member or friend?: No Do you have trouble with day-to-day activities such as bathing, preparing meals, shopping, managing finances, etc.?: No Are you currently unemployed and looking for a job?: No Are you interested in more education?: No Please select the resources that you would like help with: None Currently or been in a relationship where the following occur: No concerns reported THRIVE Score: 0 AUDIT C Alcohol Use Questionnaire (AUDIT-C) 1. How often do you have a drink containing alcohol?: 2-4 times a month 2. How many drinks containing alcohol do you have on a typical day when you are drinking?: 5 or 6 3. How often do you have six or more drinks on one occasion?: Monthly Total Score: 6 Score Reviewed/Action Taken: Yes (patient is counseled on cutting back on his alcohol intake) SHANTELLE-7 AMB Questionnaire SHANTELLE-7 Date SHANTELLE - 7 assessed: 02/04/24 Feeling nervous, anxious, or on edge: 0 = Not at all Not being able to stop or control worryin = Not at all Worrying too much about different things: 0 = Not at all Trouble relaxin = Not at all Being so restless that it is hard to sit still: 0 = Not at all Becoming easily annoyed or irritable: 0 = Not at all Feeling afraid as if something awful might happen: 0 = Not at all Total SHANTELLE-7 score (0-4 normal; 5-9 mild; 10-14 moderate; 15-21 severe): 0 Source: Developed by Drs. Lamberto Arias, Hailee Erazo, Kvng Lundberg and colleagues, with an educational marly from [employer]. Review of Systems Const Denies chills, Denies fatigue, Denies fever(s) and Denies headache(s) ENT Denies dysphagia, Reports dizziness (on and off - see HPI), Denies otalgia, Denies headache(s), Denies neck pain, Denies odynophagia and Denies sore throat Card Denies chest pain, Denies rapid heart rate, Denies irregular heart rhythm, Denies palpitations and Denies dyspnea Resp Denies chest congestion, Denies cough and Denies dyspnea GI Denies abdominal pain, Denies constipation, Denies dysphagia, Denies heartburn, Denies diarrhea, Denies nausea, Denies odynophagia and Denies vomiting Denies difficulty urinating, Denies dysuria and Denies urinary frequency Musc Denies back pain, Denies arthralgias and Denies neck pain Skin/Breast Details: (+) slightly raised left facial lesion Denies rash Neuro Reports dizziness (on and off - see HPI), Denies headache(s) and Denies paresthesias Endo Denies fatigue and Denies palpitations Physical exam (Primary Care) Vital Signs: Last Vital Signs Pulse 85 02/04/24 11:16 BP 128/86 02/04/24 11:16 Pulse Ox 98 02/04/24 11:16 Oxygen Delivery Method Room Air 02/04/24 11:16 BMI result Body Mass Index 33.0 Tobacco/Smoking Status: Tobacco use Status Tobacco use date assessed 02/04/24 02/04/24 11:21 Patient Tobacco Use Status Never used Tobacco 02/04/24 11:13 e-Cigarette/Vaping Use Never Used 02/04/24 11:13 PHQ-9: PHQ-9 Score PHQ-9: Total score 0 02/04/24 12:08 Depression Screening Interpretation: Negative Thrive Assessment: Date of Thrive Assessment Date Thrive assessed 02/04/24 02/04/24 11:21 Currently or been in a relationship where the following occur: No concerns reported Const General: no acute distress and alert HENMT Ears: TM's normal bilaterally and EAC's normal Throat: Yes posterior oropharynx normal and Yes tonsils normal (no TP congestion) Neck Neck: Yes no lymphadenopathy and Yes supple Thyroid: Thyroid normal Resp Auscultation: clear to auscultation bilaterally, no rales and no wheezes Cardio Rate: regular rate Rhythm: regular rhythm Heart sounds: no murmurs GI Palpation (GI): Soft to palpation and nontender Auscultation: normal bowel sounds General: Yes no CVA tenderness Back/Spine/Pelvis Back: no CVA tenderness Thoracic/Lumbar Spine: No lumbar spinal tenderness Skin Other: (+) slightly raised flesh-colored lesion on the left side of the face just lateral to the nose Rashes: no rashes Extrem General: Yes no clubbing, cyanosis or edema Office Procedures Flu Questionnaire Does the patient have a severe egg allergy?: No Immunizations Fluarix Triv [id number] (PF) 45 mcg (15 mcg x 3)/0.5 mL IM syringe Performing Provider: Dwayne Jose MD [facility] Documented (not given) by: RONNY Sykes on 02/04/24 11:21 Reason Not Given: Patient Refused Results Reviewed Results Reviewed: Laboratory Tests 05/06/23 01/26/24 01/26/24 06:13 06:17 06:18 WBC 8.5 Hgb 16.2 Hct 47.4 Plt Count 265 Sodium 140 Potassium 3.7 Creatinine 1.15 Estimated GFR > 60 Fasting Glucose 96 Calcium 9.5 AST 28 ALT 42 H Triglycerides 176 H 294 H Cholesterol 160 210 H LDL Cholesterol, Calc 80 102 H HDL Cholesterol 45 50 25-OH Vitamin D Total 52.7 Ur Specific [place] 1.020 Urine Protein Negative Urine Glucose (UA) Negative Urine Blood Negative Urine Nitrite Negative Ur Leukocyte Esterase Negative Coding Level of Care Code Est Pt Level 4 (00213) Complex EM visit Add On G2211 Diagnoses Mixed hyperlipidemia E78.2 Benign essential hypertension I10 Esophagitis K20.90 Impaired fasting glucose R73.01 Elevated LFTs R79.89 Hyperkalemia E87.5 Vitamin D deficiency E55.9 Facial skin lesion L98.9 Obesity (BMI 30-39.9) E66.9 Assessment & Plan Assessment & Plan (1) Mixed hyperlipidemia: Code(s): E78.2 - Mixed hyperlipidemia Category: Medical Plan: Results of his labs done last week reviewed and discussed with patient - have cautioned him that his cholesterol levels (particularly his total cholesterol and serum trigylcerides) have increased significantly from previous Patient states that he has been taking his cholesterol medications regularly and has not really changed anything in his diet so he does not know why his cholesterol numbers are up Reinforced low cholesterol diet Continue Fenofibrate 160 mg QD and Ezetimibe 10 mg QD for now Will recheck his labs and fasting lipids in 4 months for follow up - advised that if his cholesterol numbers do not improve significantly over the next few months, then we may need to look into making some adjustments or changes to his current medications (2) Benign essential hypertension: Code(s): I10 - Essential (primary) hypertension Category: Medical Plan: Reinforced low sodium diet - goal is systolic BP of at least 130 mm or less His blood pressure is quite high today even when it was rechecked but his BP was well-controlled when he was just here a few weeks ago Continue Losartan 100 mg QD, Amlodipine 10 mg QD and Hydralazine 50 mg TID He was previously on Aldactazide 25-25 mg QD but this had to be discontinued due to hyperkalemia on his recent labs and he was switched back to HCTZ 25 mg QD although he is not sure if he is still taking HCTZ at this time and will check into this when he gets home later today He also could not tolerate Hydralazine in the past due to dizziness and beta blockers are not advisable given his allergies and potential need to use Epipen for anaphylactic reactions but he was started back on this by cardiology a few weeks ago due to suboptimally controlled BP and he initially did well but seems to be experiencing on and off dizziness again recently, especially shortly after he takes his BP meds He had a renal doppler done in February 2023 that came out normal He also had a home sleep study done a few months ago but we do not have any information on this in his chart Follow up with cardiology as scheduled He has also been referred to nephrology by cardiology and he is scheduled to be seen by Dr. Swain next week (3) Esophagitis: Comment: reflux esophagitis Code(s): K20.90 - Esophagitis, unspecified without bleeding Category: Medical Plan: His EGD done a few months ago revealed (+) findings of grade B esophagitis; biopsies were reportedly negative Reinforced dietary restrictions Patient states that his symptoms have improved significantly since he was started on Rx a few months ago Continue Pantoprazole 40 mg QD - Rx refilled (4) Impaired fasting glucose: Code(s): R73.01 - Impaired fasting glucose Category: Medical Plan: His FBS remained normal at 96 mg/dl on his recent labs; HgbA1c was also normal at 5.5% when checked a few months ago Reinforced low calorie/low carb diet and exercise as tolerated (5) Elevated LFTs: Code(s): R79.89 - Other specified abnormal findings of blood chemistry Category: Medical Plan: Improving - his serum AST is now normal and ALT is just slightly higher than normal (has improved a lot from a few months ago) These are most likely related to his weight and cholesterol level Reinforced avoidance of alcohol and Tylenol-containing meds - patient states that he has not drank any alcohol in months now Will continue to monitor his LFTs regularly (6) Hyperkalemia: Code(s): E87.5 - Hyperkalemia Category: Medical Plan: His serum potassium level has remained normal on his recent labs - this was likely due to his diuretic Rx Patient was on Aldactazide previously and this was discontinued and he was switched over to HCTZ alone by cardiology a few months ago although he is not clear at this time whether he is still taking this and will look into this when he gets home later today Will continue to monitor his serum potassium and electrolyte levels regularly (7) Vitamin D deficiency: Code(s): E55.9 - Vitamin D deficiency, unspecified Category: Medical Plan: Continue Vitamin D 69839 units once a week (8) Facial skin lesion: Code(s): L98.9 - Disorder of the skin and subcutaneous tissue, unspecified Category: Medical Plan: Will refer him to dermatology for further evaluation and management (9) Obesity (BMI 30-39.9): Code(s): E66.9 - Obesity, unspecified Category: Medical Plan: Reinforced diet/exercise as tolerated/lose weight Plan Follow up in 4 months Orders: Orders Complete Blood Count Auto Diff 4 Months D64.9 - Anemia, unspecified Hemoglobin A1c 4 Months R73.01 - Impaired fasting glucose Influenza [id number] Immunization 02/04/24 Z23 - Encounter for immunization Lipid Panel 4 Months E78.00 - Pure hypercholesterolemia, unspecified Comprehensive [place]. Panel Fast 4 Months E78.00 - Pure hypercholesterolemia, unspecified Vitamin D 25-OH Total 4 Months E55.9 - Vitamin D deficiency, unspecified Referrals Dermatology Referral L98.9 - Disorder of the skin and subcutaneous tissue, unspecified Medications: Refilled pantoprazole 40 mg PO DAILY 90 days 90 tabs 1RF K20.90 - Esophagitis, unspecified without bleeding
[2024-02-04 11:16] VITALS: BP 128/86; PULSE 85; O2SAT 98; BMI 33.0
== END 2024-02-04 11:58 | disposition home or self-care (01) ==
PROVIDERS: PCP Internal Medicine; Visit Provider Internal Medicine
DX: I10 Essential (primary) hypertension (principal); E78.2 Mixed hyperlipidemia; Z68.33 Body mass index [BMI] 33.0-33.9, adult; E66.9 Obesity, unspecified; K20.90 Esophagitis, unspecified without bleeding; R73.01 Impaired fasting glucose; E87.5 Hyperkalemia; E55.9 Vitamin D deficiency, unspecified; L98.9 Disorder of the skin and subcutaneous tissue, unspecified

== ENCOUNTER → 2024-02-04 11:11 | Outpatient (BNVA) | payer BC, SELFPAY | PROVIDERS: PCP Internal Medicine; Visit Provider Internal Medicine | DX: E78.2 Mixed hyperlipidemia (principal); I10 Essential (primary) hypertension; K20.90 Esophagitis, unspecified without bleeding; R73.01 Impaired fasting glucose; R79.89 Other specified abnormal findings of blood chemistry; E87.5 Hyperkalemia; E55.9 Vitamin D deficiency, unspecified; L98.9 Disorder of the skin and subcutaneous tissue, unspecified; E66.9 Obesity, unspecified; Z68.33 Body mass index [BMI] 33.0-33.9, adult; Z79.899 Other long term (current) drug therapy | CPT/HCPCS: 90471; 96127 ==

== ENCOUNTER 2025-01-20 07:30 | Outpatient (REF) | payer BC, SELFPAY ==
[2025-01-20 07:40] LABS: MANUAL DIFF FLAG NO
[2025-01-20 08:26] LABS: Hematocrit 47.8 % (42.0-52.0); Hemoglobin 16.5 g/dl (14.0-18.0); Imm Gran Abs Auto 0.03 X10*3/uL (0.00-0.03); Imm Gran Pct Auto 0.4 % (0.0-0.4); Lymphocytes Absolute Auto 2.1 X10*3/uL (1.2-4.9); Mean Corpuscular HGB Conc 34.5 g/dl (31.0-36.0); Mean Corpuscular Hemoglobin 29.5 pg (27.0-33.0); Mean Corpuscular Volume 85.4 fL (80.0-98.0); NRBC Abs Auto 0.000 X10*3/uL (0.0-0.012); NRBC Pct Auto 0.0 /100WBC (0.0-0.2); Platelet Count 298 X10*3/uL (160-400); Red Blood Count 5.60 X10*6/uL (4.60-5.80); White Blood Count 8.2 X10*3/uL (4.8-10.8)
[2025-01-20 09:08] LABS: Alanine Aminotransferase 60 U/L (0-40); Albumin Level 4.9 g/dL (3.5-5.0); Alkaline Phosphatase 60 U/L (39-117); Anion Gap 13 (12-20); Aspartate Amino Transferase 50 U/L (5-37); Blood Urea Nitrogen 19 mg/dL (9-16); Calcium 9.6 mg/dL (8.4-10.2); Carbon Dioxide 22 mmol/L (22-29); Chloride 108 mmol/L (96-108); Cholesterol 151 mg/dL (<200); Estimated Glomerular Filt Rate > 60; HDL Cholesterol 47 mg/dL (>40); Potassium 4.1 mmol/L (3.3-5.1); Sodium 139 mmol/L (135-145); Total Protein 7.4 g/dL (6.5-8.0); Triglycerides 101 mg/dL (<150)
== END 2025-01-20 07:31 | disposition home or self-care (01) ==
LOC: HO.LAB 07:30
PROVIDERS: PCP Internal Medicine; Visit Provider Internal Medicine
DX: R73.01 Impaired fasting glucose (principal); E78.00 Pure hypercholesterolemia, unspecified; D64.9 Anemia, unspecified; E55.9 Vitamin D deficiency, unspecified
CPT/HCPCS: 36415; 80053; 80061; 82306; 83036; 85025

== ENCOUNTER 2025-02-01 14:31 | Outpatient (AMB) | payer BC, SELFPAY ==
[2025-02-01 14:41] VITALS: BP 172/100; PULSE 98; O2SAT 97; BMI 32.7
--- NOTE | 2025-02-01 14:41 | MHC.PC.OV ---
Vital Signs 02/01/25 14:41 02/01/25 15:22 Height 5 ft 6 in Weight 202 lb 8 oz BMI 32.7 BP 172/100 H 170/98 H Blood Pressure Location Lt brachial Lt brachial Position Sitting Sitting Pulse 98 102 H Pulse Source Pulse Oximeter Pulse Oximeter Pulse Oximetry (%) 97 Oxygen Delivery Method Room Air Intake Visit Reasons: annual exam Tourist Guide Required: No Accompanied by: Self / Same As Patient Allergies bee venom protein (honey bee) Allergy (Severe, Verified 02/01/25 15:16) Anaphylaxis Medication List - Last Reconciled 02/01/25 by Dwayne Jose MD amlodipine 10 mg PO DAILY 90 days cholecalciferol (vitamin D3) 25 mcg PO DAILY 90 days epinephrine (EpiPen 2-Enoch) 0.3 mg (0.3 mL) IM Q4H PRN ezetimibe 10 mg PO DAILY 90 days fenofibrate 160 mg PO DAILY 90 days hydralazine 50 mg PO TID 90 days hydrochlorothiazide 25 mg PO DAILY 90 days losartan 100 mg PO DAILY 90 days multivitamin (Daily Multi-Vitamin tablet) 1 tab PO DAILY omega-3 fatty acids 1,000 mg PO DAILY 90 days pantoprazole 40 mg PO DAILY 90 days Tobacco use date assessed: 02/01/25 Dental Screening Dental Screen Date: 02/01/25 Did you have a dental visit in the last 12 months?: No Did you have a dental problem in the last 6 months where you did not have access to dental care?: No Was dental information given to patient?: No HPI annual exam HPI Details Patient comes in today for his annual physical examination States that he currently feels okay but reports that he has been experiencing on and off dizziness and occasional occipital pain/headaches lately He denies any chest pains, no increased SOB No nausea/vomiting, no abdominal pain No change in bowel habits noted He denies any acute urinary symptoms He had his follow up labs done a couple of weeks ago - to discuss his results He had his screening colonoscopy done last year in 05/2023, and his next colonoscopy will be due in 10 years (2033) [facility] Medical History Impaired fasting glucose Vitamin D deficiency Elevated LFTs Erectile dysfunction Mixed hyperlipidemia Obesity (BMI 30-39.9) Benign essential hypertension Surgical History History of esophagogastroduodenoscopy (EGD) History of colonoscopy Hx of umbilical hernia repair (~02/2015) Family History Father Prostate cancer Mother Heart problem Social History Housing: House Alcohol intake: current Alcohol intake frequency: holidays/special occasions only Alcohol type: beer Patient Tobacco Use Status: Never used Tobacco e-Cigarette/Vaping Use: Never Used Second Hand Smoke Exposure: No service: No Current occupational status: employed Cognitive needs: No Hearing needs: No Vision needs: No Questionnaire PHQ-9 Over the last 2 weeks, how often have you been bothered by any of the following problems? 1. Little interest or pleasure in doing things: not at all 2. Feeling down, depressed, or hopeless: not at all 3. Trouble falling or staying asleep, or sleeping too much: not at all 4. Feeling tired or having little energy: not at all 5. Poor appetite or overeating: not at all 6. Feeling bad about yourself - or that you are a failure or have let yourself or your family down: not at all 7. Trouble concentrating on things, such as reading the newspaper or watching television: not at all 8. Moving or speaking so slowly that other people could have noticed. Or the opposite - being so fidgety or restless that you have been moving around a lot more than usual: not at all 9. Thoughts that you would be better off or of hurting yourself in some way: not at all Total score: 0 Depression Screening Interpretation: Negative Depression Screening Done: Yes 46869 - PHQ-9 Billing: Yes Source: Developed by Drs. Lamberto Arias, Hailee Erazo, Kvng Lundberg and colleagues, with an educational marly from [employer]. Thrive Questionnaire Date Thrive assessed: 02/01/25 I am a: Patient What is your living situation today?: I have a steady place to live Within the past 12 months, did the food you bought not last and you didn't have the money to get more?: Never true Within the past 12 months, did you worry whether your food would run out before you got money to buy more?: Never true Do you have trouble paying for medicines?: No Do you have trouble getting transportation to medical appointments?: No Do you have trouble paying your heating and electricity bill?: No Do you have trouble taking care of your child, family member or friend?: No Do you have trouble with day-to-day activities such as bathing, preparing meals, shopping, managing finances, etc.?: No Are you currently unemployed and looking for a job?: No Are you interested in more education?: No Please select the resources that you would like help with: None Currently or been in a relationship where the following occur: No concerns reported THRIVE Score: 0 AUDIT C Alcohol Use Questionnaire (AUDIT-C) 1. How often do you have a drink containing alcohol?: Never 3. How often do you have six or more drinks on one occasion?: Never Total Score: 0 Score Reviewed/Action Taken: Yes SHANTELLE-7 AMB Questionnaire SHANTELLE-7 Date SHANTELLE - 7 assessed: 02/01/25 Feeling nervous, anxious, or on edge: 0 = Not at all Not being able to stop or control worryin = Not at all Worrying too much about different things: 0 = Not at all Trouble relaxin = Not at all Being so restless that it is hard to sit still: 0 = Not at all Becoming easily annoyed or irritable: 0 = Not at all Feeling afraid as if something awful might happen: 0 = Not at all Total SHANTELLE-7 score (0-4 normal; 5-9 mild; 10-14 moderate; 15-21 severe): 0 Source: Developed by Drs. Lamberto Arias, Hailee Erazo, Kvng Lundberg and colleagues, with an educational marly from [employer]. Review of Systems Const Denies chills, Denies fatigue, Denies fever(s), Reports headache(s) (on and off, mostly occipital), Denies malaise and Denies weakness Eyes Denies blurry vision, Denies change in vision, Denies irritation and Denies itchy eyes ENT Denies dysphagia, Reports dizziness (occasional), Denies otalgia, Reports headache(s) (on and off, mostly occipital), Denies nasal congestion, Denies neck pain, Denies odynophagia and Denies sore throat Card Denies chest pain, Denies rapid heart rate, Denies irregular heart rhythm, Denies palpitations and Denies dyspnea Resp Denies chest congestion, Denies cough, Denies dyspnea and Denies wheezing GI Denies abdominal pain, Denies bloating, Denies constipation, Denies dysphagia, Denies heartburn, Denies diarrhea, Denies nausea, Denies odynophagia and Denies vomiting Denies hematuria, Denies difficulty urinating, Denies dysuria, Denies urinary frequency and Denies urinary urgency Musc Denies back pain, Denies arthralgias, Denies joint swelling, Denies muscle weakness and Denies neck pain Skin/Breast Denies change in pigmentation, Denies lesions, Denies rash and Denies unusual bruising Neuro Reports dizziness (occasional), Reports headache(s) (on and off, mostly occipital), Denies paresthesias and Denies weakness Endo Denies fatigue and Denies palpitations Aller/Immun Denies itchy eyes and Denies wheezing Physical exam (Primary Care) Vital Signs: Last Vital Signs Pulse 102 H 02/01/25 15:22 BP 170/98 H 02/01/25 15:22 Pulse Ox 97 02/01/25 14:41 Oxygen Delivery Method Room Air 02/01/25 14:41 BMI result Body Mass Index 32.7 Tobacco/Smoking Status: Tobacco use Status Tobacco use date assessed 02/01/25 02/01/25 14:44 Patient Tobacco Use Status Never used Tobacco 02/01/25 14:44 e-Cigarette/Vaping Use Never Used 02/01/25 14:44 PHQ-9: PHQ-9 Score PHQ-9: Total score 0 02/01/25 15:22 Depression Screening Interpretation: Negative Thrive Assessment: Date of Thrive Assessment Date Thrive assessed 02/01/25 02/01/25 14:44 Currently or been in a relationship where the following occur: No concerns reported Const General: no acute distress, alert and awake Orientation/consciousness: patient oriented x3 HENMT Head: Yes normocephalic and Yes atraumatic Ears: external ears normal, TM's normal bilaterally and EAC's normal General nose exam: No nasal discharge present Face and sinus: Yes normal facial exam and Yes sinuses nontender Teeth and gingiva: dentition normal Throat: Yes posterior oropharynx normal and Yes tonsils normal (no TP congestion) Eyes Eyelids: Yes eyelids normal Conjunctivae: conjunctivae normal Pupils: Equal, round and reactive pupils present EOM: EOMs intact bilaterally Neck Neck: Yes no lymphadenopathy and Yes supple Thyroid: Thyroid normal Resp Auscultation: clear to auscultation bilaterally, no rales and no wheezes Cardio Rate: regular rate Rhythm: regular rhythm Heart sounds: no murmurs GI Palpation (GI): Soft to palpation, nontender and No hepatosplenomegaly present Auscultation: normal bowel sounds General: Yes no CVA tenderness Back/Spine/Pelvis Back: no CVA tenderness Thoracic/Lumbar Spine: thoracic and lumbar spine normal to inspection Skin Lesions: no lesions Rashes: no rashes Neuro General: patient oriented x3, moves all extremities, no focal motor deficits and CN's II-XI intact bilaterally Cranial nerves: Yes Equal, round and reactive pupils present Cognition (Neuro): normal cognition Gait exam (Neuro): Normal gait present Extrem General: Yes no clubbing, cyanosis or edema Results Reviewed Results Reviewed: Laboratory Tests 01/26/24 01/20/25 06:18 07:39 WBC 8.2 Hgb 16.5 Hct 47.8 Plt Count 298 Sodium 139 Potassium 4.1 Creatinine 1.20 Estimated GFR > 60 Fasting Glucose 95 Hemoglobin A1c % 5.6 AST 50 H ALT 60 H Triglycerides 101 Cholesterol 151 LDL Cholesterol, Calc 84 HDL Cholesterol 47 25-OH Vitamin D Total 42.4 Ur Specific [place] 1.020 Urine Protein Negative Urine Glucose (UA) Negative Urine Blood Negative Urine Nitrite Negative Ur Leukocyte Esterase Negative Coding Level of Care Code Est Pt Prev Care 40-64y(50742) Diagnoses Annual physical exam Z00.00 Benign essential hypertension I10 Mixed hyperlipidemia E78.2 Esophagitis K20.90 Impaired fasting glucose R73.01 Elevated LFTs R79.89 Hyperkalemia E87.5 Vitamin D deficiency E55.9 Obesity (BMI 30-39.9) E66.9 Additional Codes PHQ-9 - 55007 - PHQ-9 Billing: Yes ([id number]) Assessment & Plan Assessment & Plan (1) Annual physical exam: Code(s): Z00.00 - Encounter for general adult medical examination without abnormal findings Category: Medical Plan: Results of his labs done a couple of weeks ago reviewed and discussed with patient He had his screening colonoscopy done last year in 05/2023, and his next colonoscopy will be due in 10 years (2033) (2) Benign essential hypertension: Code(s): I10 - Essential (primary) hypertension Category: Medical Plan: Reinforced low sodium diet - goal is systolic BP of at least 130 mm or less His blood pressure is again quite high today even when it was rechecked Continue Losartan 100 mg QD, Amlodipine 10 mg QD, Hydralazine 50 mg TID and HCTZ 25 mg QD He was previously on Aldactazide 25-25 mg QD but this had to be discontinued due to hyperkalemia and was switched back to HCTZ 25 mg QD He had a renal doppler done in February 2023 that came out normal He also had a home sleep study done a few months ago but we do not have any information on this in his chart Follow up with cardiology as scheduled He has also been referred to nephrology by cardiology (3) Mixed hyperlipidemia: Code(s): E78.2 - Mixed hyperlipidemia Category: Medical Plan: His cholesterol levels are currently well-controlled on his current medications Reinforced low cholesterol diet Continue Fenofibrate 160 mg QD and Ezetimibe 10 mg QD Will recheck his labs and fasting lipids in 4 months for follow up (4) Esophagitis: Comment: reflux esophagitis Code(s): K20.90 - Esophagitis, unspecified without bleeding Category: Medical Plan: His EGD done a few months ago revealed (+) findings of grade B esophagitis; biopsies were reportedly negative Reinforced dietary restrictions Patient states that his symptoms have improved significantly since he was started on his Rx a few months ago Continue Pantoprazole 40 mg QD (5) Impaired fasting glucose: Code(s): R73.01 - Impaired fasting glucose Category: Medical Plan: His FBS remained normal at 95 mg/dl on his recent labs; HgbA1c was also normal at 5.6% Reinforced low calorie/low carb diet and exercise as tolerated (6) Elevated LFTs: Code(s): R79.89 - Other specified abnormal findings of blood chemistry Category: Medical Plan: His LFTs are again elevated on his recent labs - these are most likely related to his weight but patient also admits to drinking some alcohol but stopped a few months ago Reinforced avoidance of alcohol and Tylenol-containing meds Will continue to monitor his LFTs regularly for now (7) Hyperkalemia: Code(s): E87.5 - Hyperkalemia Category: Medical Plan: His serum potassium level has remained normal on his recent labs - this was likely due to his diuretic Rx Patient was on Aldactazide previously and this was discontinued and he was switched over to HCTZ alone by cardiology a few months ago Will continue to monitor his serum potassium and electrolyte levels regularly (8) Vitamin D deficiency: Code(s): E55.9 - Vitamin D deficiency, unspecified Category: Medical Plan: Continue Vitamin D 69073 units once a week (9) Obesity (BMI 30-39.9): Code(s): E66.9 - Obesity, unspecified Category: Medical Plan: Reinforced diet/exercise as tolerated/lose weight Plan Follow up in 4 months Orders: Orders Complete Blood Count Auto Diff 4 Months D64.9 - Anemia, unspecified Comprehensive [place]. Panel Fast 4 Months E78.00 - Pure hypercholesterolemia, unspecified UA CC w/rflx Micro + Cult 4 Months R30.0 - Dysuria Vitamin D 25-OH Total 4 Months E55.9 - Vitamin D deficiency, unspecified Lipid Panel 4 Months E78.00 - Pure hypercholesterolemia, unspecified Hemoglobin A1c 4 Months R73.01 - Impaired fasting glucose TSH reflex Free T4 4 Months E78.00 - Pure hypercholesterolemia, unspecified
[2025-02-01 15:22] VITALS: BP 170/98; PULSE 102
--- OUTSIDE RECORDS SUMMARY | 2025-02-01 20:44 | XMS_ITS | Clinical Summary ---
Author Organization [facility] ity Address [address] [place] [address] Care Team Providers Care Bar Porter Name Role Phone Unavailable Primary Care Provider Unavailabl e Social History Tobacco Use Types Packs/Day Years Used Date Smoking Tobacco: Never Assessed Sex and Gender Information Value Date Recorded Sex Assigned at Not on file Legal Sex Male 8:54 PM EST Gender Identity Not on file Sexual Orientation Not on file Plan of Treatment Health Maintenance Due Date Last Done Comments DTaP,Tdap,and Td Vaccines (1 - Tdap) 1989 Hepatitis B Vaccines (1 of 3 - 19+ 3-dose series) 1989 Pneumococcal Vaccine: 50+ Ye ars (1 of 1 - PCV) 2020 Zoster Vaccines (1 of 2) 2020 Depression Screening 04/13/2024 COVID-19 Vaccine (1 - 2023-2 5 season) 2024 Influenza Vaccine (#1) 2024 RSV Immunization Adult Patie nts (1 - 1-dose 75+ series) 2045 HIB Vaccines Aged Out No longer eligi ble based on patient's age to complete this topic HPV Vaccines Aged Out No longer eligi ble based on patient's age to complete this topic Hepatitis A Vaccines Aged Out No long er eligible based on patient's age to complete this topic IPV Vaccines Aged Out No longer eligi ble based on patient's age to complete this topic MMR Vaccines Aged Out No longer eligi ble based on patient's age to complete this topic Meningococcal ACWY Vaccine Aged Out N o longer eligible based on patient's age to complete this topic Meningococcal B Vaccine Aged Out No l onger eligible based on patient's age to complete this topic RSV Immunization Patients Un iron 20 months Aged Out No longer eligible b ased on patient's age to complete this topic Varicella Vaccines Aged Out No longer eligible based on patient's age to complete this topic
== END 2025-02-01 15:32 | disposition home or self-care (01) ==
LOC: HO.HMCH 14:32
PROVIDERS: PCP Internal Medicine; Visit Provider Internal Medicine
DX: Z00.00 Encounter for general adult medical examination without abnormal findings (principal); I10 Essential (primary) hypertension; E66.9 Obesity, unspecified; Z68.32 Body mass index [BMI] 32.0-32.9, adult; E78.2 Mixed hyperlipidemia; K20.90 Esophagitis, unspecified without bleeding; R73.01 Impaired fasting glucose; R79.89 Other specified abnormal findings of blood chemistry; E87.5 Hyperkalemia; E55.9 Vitamin D deficiency, unspecified

== ENCOUNTER → 2025-02-01 14:31 | Outpatient (BNVA) | payer BC, SELFPAY | PROVIDERS: PCP Internal Medicine; Visit Provider Internal Medicine | DX: Z00.00 Encounter for general adult medical examination without abnormal findings (principal); I10 Essential (primary) hypertension; E78.2 Mixed hyperlipidemia; K20.90 Esophagitis, unspecified without bleeding; R73.01 Impaired fasting glucose; R79.89 Other specified abnormal findings of blood chemistry; E87.5 Hyperkalemia; E55.9 Vitamin D deficiency, unspecified; E66.9 Obesity, unspecified; R30.0 Dysuria; E78.00 Pure hypercholesterolemia, unspecified; Z68.32 Body mass index [BMI] 32.0-32.9, adult | CPT/HCPCS: 96127 ==

== ENCOUNTER 2025-03-21 09:02 | Outpatient (AMB) | payer BC, SELFPAY ==
[2025-03-21 09:10] VITALS: BP 180/100; PULSE 67; BMI 33.2
--- NOTE | 2025-03-21 09:10 | A.OFFVIS_ITS ---
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: No Allergies bee venom protein (honey bee) Allergy (Severe, Verified 03/21/25 09:12) Anaphylaxis Medication List - Last Reconciled 03/21/25 by Yola Collins NP-C amlodipine 10 mg PO DAILY 90 days cholecalciferol (vitamin D3) 25 mcg PO DAILY 90 days epinephrine (EpiPen 2-Enoch) 0.3 mg (0.3 mL) IM Q4H PRN ezetimibe 10 mg PO DAILY 90 days fenofibrate 160 mg PO DAILY 90 days hydralazine 50 mg PO TID 90 days hydrochlorothiazide 25 mg PO DAILY 90 days multivitamin (Daily Multi-Vitamin tablet) 1 tab PO DAILY pantoprazole 40 mg PO DAILY 90 days HPI HPI F/u Hypertension: Details: Titus is a 54-year-old male with past medical history of hypertension, hyperlipidemia, impaired fasting glucose presents for follow-up of blood pressure. On last visit 12/01/2023, nephrology consult was ordered in his hydralazine dose was increased. Today he reports he has been noticing increased shortness of breath and general fatigue with exertional activities such as cardio exercises and walking around park near his home. No chest discomfort rest or with activity. No shortness of breath at rest, heart palpitations, lightheadedness, presyncope, syncope, PND, orthopnea or edema. He takes his meds as directed. He works out in his gym at home. Home blood pressures typically run 140-150 systolic. He did not have an appointment with the lunch counter manager. He was taken off losartan at some point but does not recall any reason why. [facility] Medical History Impaired fasting glucose Vitamin D deficiency Elevated LFTs Erectile dysfunction Mixed hyperlipidemia Obesity (BMI 30-39.9) Benign essential hypertension Surgical History History of esophagogastroduodenoscopy (EGD) History of colonoscopy Hx of umbilical hernia repair (~02/2015) Family History Father Prostate cancer Mother Heart problem Social History Housing: House Alcohol intake: current Alcohol intake frequency: holidays/special occasions only Alcohol type: beer Patient Tobacco Use Status: Never used Tobacco e-Cigarette/Vaping Use: Never Used Second Hand Smoke Exposure: No service: No Current occupational status: employed Cognitive needs: No Hearing needs: No Vision needs: No Review of Systems Const All systems reviewed & are unremarkable except as noted in HPI and below ENT Denies dizziness Card Details: exertional fatigue Denies chest pain, Denies chest pain at rest, Denies chest pain with activity, Denies rapid heart rate, Denies pedal edema, Denies edema, Denies leg edema, Denies lightheadedness, Denies palpitations, Denies dyspnea, Reports dyspnea on exertion and Denies orthopnea Resp Denies cough, Denies dyspnea and Reports dyspnea on exertion GI Denies hematochezia and Denies change in stool character Musc Denies abnormal gait, Denies limited range of motion, Denies muscle cramps, Denies muscle weakness, Denies numbness, Denies radiating pain into limb, Denies stiffness and Denies tingling Neuro Denies abnormal gait, Denies dizziness, Denies numbness and Denies tingling Endo Denies palpitations Physical Exam Vital Signs: Last Vital Signs Pulse 67 03/21/25 09:10 BP 180/100 H 03/21/25 09:10 BMI result Body Mass Index 33.2 Const General: cooperative, healthy appearing, comfortable and no acute distress Orientation/consciousness: patient oriented x3 Neck Neck: Yes normal visual inspection Resp Effort & Inspection: normal respiratory effort Auscultation: clear to auscultation bilaterally, no crackles, no rales, no rhonchi and no wheezes Cardio Rate: regular rate Rhythm: regular rhythm Heart sounds: S1 normal heart sound present, S2 normal heart sound present, no gallops, no murmurs and no rubs Neuro General: patient oriented x3 Extrem General: Yes normal to inspection, No no pedal edema and No calf tenderness Psych Appearance: grossly normal Mental Status: mental status grossly normal Speech and movement: Normal speech and movement present Assessment & Plan Assessment & Plan (1) Uncontrolled hypertension: Code(s): I10 - Essential (primary) hypertension Category: Medical Plan: Longstanding history of hypertension which is uncontrolled. In the past he has had hyperkalemia with spironolactone. He is not on beta-blockers as he needs to use EpiPen for allergic reactions. He has some lightheadedness with hydralazine but is still taking it. Current meds include amlodipine, hydralazine, hydrochlorothiazide. He has been on losartan which was stopped for unclear re ason. Last Echocardiogram done 12/10/2022 showed EF 55-60%, mild LVH, mildly dilated left atrium, normal valves. Renal ultrasound done on 02/26/2023 was normal with normal Doppler exam. Home sleep study previously ordered and not completed by him. Blood pressure very elevated today. Will plan restart of losartan 50 mg daily with BMP in 1 week. Will refer to Nephrology to assist with blood pressure management. With his new shortness of breath will update echocardiogram. He may need cardiac stress testing when blood pressure is better controlled. Cardiology follow-up 4-6 weeks, sooner if needed. (2) Benign essential hypertension: Code(s): I10 - Essential (primary) hypertension Category: Medical (3) LVH (left ventricular hypertrophy): Code(s): I51.7 - Cardiomegaly Category: Medical Plan: Mild LVH. Needs good blood pressure control. (4) Chest pain: Code(s): R07.9 - Chest pain, unspecified Category: Medical Qualifiers: Chest pain type: other chest pain Qualified Code(s): R07.89 - Other chest pain Plan: Prior reports of chest discomfort without cardiac findings. A CTA of the coronary arteries was done on 12/03/2022 showing excellent quality normal coronary CTA. Today at this visit denies any chest discomfort. (5) Shortness of breath: Code(s): R06.02 - Shortness of breath Category: Medical Plan: New shortness of breath with exertional activities. He does not appear fluid overloaded on exam. Will update echocardiogram to reassess for structural disease. Plan I explained to the patient that his symptoms of fatigue and shortness of breath are very likely caused by his severely high blood pressure. I discussed how chronic hypertension has caused his heart muscle to thicken, a condition called LVH, and that we need to get his blood pressure under control to prevent progression to congestive heart failure. I advised that a cardiac stress test is not safe to perform until his blood pressure is better managed. I recommended we proceed with an updated echocardiogram to check his heart's current status. We discussed medication options, and I recommended re-adding losartan 50 mg since he reported lightheadedness with hydralazine, rather than increasing the latter. I strongly recommended he follow through with the referral to a kidney specialist (lunch counter manager), explaining their role in managing complex blood pressure cases and their ability to arrange a 24-hour ambulatory BP monitor to understand his BP patterns better. I instructed him to get a blood test in 1-2 weeks to monitor kidney function after starting losartan and to follow up with me in 4-6 weeks to review results and his blood pressure response. Orders: Orders CA echo transthoracic complete Today I10 - Essential (primary) hypertension, I51.7 - Cardiomegaly Basic Metabolic Panel 1 Week I10 - Essential (primary) hypertension Referrals Nephrology Referral I10 - Essential (primary) hypertension Medications: New losartan 50 mg PO DAILY 30 tabs 5RF Patient Instructions: - Begin taking Losartan 50 mg once daily. The prescription has been sent to your pharmacy. - Continue taking your other blood pressure medications as you have been. - Avoid strenuous exercise like jogging or running until your blood pressure is better controlled. - You will be contacted to schedule an echocardiogram (an ultrasound of your heart). - A kidney specialist (lunch counter manager) will call you to set up an appointment. It is very important that you see this doctor for your blood pressure. - Go for a blood test in 1 to 2 weeks to check your kidney function. - Schedule a follow-up appointment in this office in 4 to 6 weeks to check on your blood pressure and review your test results. Patient was informed and verbally consented to the use of an ambient scribe for clinic note documentation during this visit. Visit time spent on chart review, interview, assessment, orders, documentation. Coding Level of Care Code Est Pt Level 4 (71715) Complex visit Add On G2211 Diagnoses Uncontrolled hypertension I10 Benign essential hypertension I10 LVH (left ventricular hypertrophy) I51.7 Other chest pain R07.89 Chest pain type: other chest pain Shortness of breath R06.02 Time Spent (min) 28
== END 2025-03-21 09:54 | disposition home or self-care (01) ==
LOC: HO.HCS 09:03
PROVIDERS: PCP Internal Medicine; Visit Provider Nurse Practitioner Family
DX: I10 Essential (primary) hypertension (principal); I51.7 Cardiomegaly; R07.89 Other chest pain; R06.02 Shortness of breath
CPT/HCPCS: 93010; 99214

== ENCOUNTER → 2025-03-21 09:02 | Outpatient (BNVA) | payer BC, SELFPAY | PROVIDERS: PCP Internal Medicine; Visit Provider Nurse Practitioner Family | DX: I11.9 Hypertensive heart disease without heart failure (principal); R06.02 Shortness of breath; R07.89 Other chest pain; Z79.899 Other long term (current) drug therapy | CPT/HCPCS: 93005 ==